=== PATIENT | female | born 1960 | race Caucasian/White ===

== ENCOUNTER 2017-07-25 00:51 | Emergency (ER) | payer BC, OTHER ==
[2017-07-25 01:05] VITALS: BP 207/88; BMI 24.0
--- NOTE | 2017-07-25 01:24 | DR.GENAD ---
HPI - PCP Primary Care Physician: Geo - Complaint/Symptoms Chief Complaint Doctors Comments: I agree with statement. The pain is sharp, not aggravated by motion. Chief Complaint:: "I have been having some back pain in my kidney area since about 1800 tonight that is about a 10 out of 10. I am currently on dialisis because I only have one kidney. So I wanted to get it checked out to make sure everything is okay." Self Treatment fo Chief Complaint: Patient took a Hydrocodone and tylenol. - Source History Provided: Patient - Mode of Arrival Mode of Arrival: Ambulatory - Timing Onset of Chief Complaint: 07/25/17 PMH - PMH Past Medical History: Yes Past Medical History: Diabetes, Hypertension, Renal Disease Past Surgical History: Yes Surgical History: Cholecystectomy, Other Past Surgical History Comment: Liver biopsy, Partial removal of liver, kidney removal (right), blood clot removed from abdomen. - Family History History of Family Medical Conditions: Yes Family Medical History: Cancer, Heart Failure - Social History Does patient currently use any type of tobacco product: No Have you used tobacco products in the last 12 months: No Type of Tobacco Use: None Does any household member use tobacco: No Alcohol Use: None Do you use any recreational Drugs:: No Lives With: Family Lives Where: Home - infectious screening In the last 2 months have you had wt loss of >10#?: NO Have you had fever, night sweats or hemotysis?: No Have you traveled outside the country in the last 6 months?: No Isolation: Standard ROS - Review of Systems Eyes: No Symptoms Reported ENTM: No Symptoms Reported Respiratoy: No Symptoms Reported Cardiovascular: No Symptoms Reported Gastrointestinal/Abdominal: No Symptoms Reported Genitourinary: No Symptoms Reported Neurological: No Symptoms Reported Musculoskeletal: Back Pain (right flank) Integumentary: No Symptoms Reported Hematologic/Lymphatic: No Symptoms Reported Endocrine: No Symptoms Reported Psychiatric: No Symptoms Reported All Other Systems: Reviewed and Negative PE - Vital Signs Vitals: Temperature 97.5 F Pulse Rate 62 Respiratory Rate 18 Blood Pressure [Right Arm] 179/91 Blood Pressure [Left Arm] 153/84 Blood Pressure 207/88 O2 Sat by Pulse Oximetry 99 - General Limitations: No Limitations General Appearance: Alert, In No Apparent Distress - Head Head Exam: Normal Inspection, Atraumatic - Eyes Eye exam: Normal Appearance, PERRL, EOMI - ENT ENT Exam: Normal Exam External Ear Exam: Normal External Inspection TM/Canal Exam: Bilateral Normal Nose Exam: Normal Nose Exam, Sinus Tenderness Mouth Exam: Normal Inspection Throat Exam: Normal Inspection - Neck Neck Exam: Normal Inspection, Full ROM - Chest Chest Inspection: Normal Inspection - Respiratory Respiratory Exam: Normal Lung Sounds Bilat Respiratory Exam: Bilateral Clear to Auscultation - Cardiovascular Cardiovascular Exam: Regular Rate, Normal Rhythm - Abdominal Exam Abdominal Exam: Normal Inspection, Normal Bowel Sounds Abdominal Tenderness: negative: RUQ, RLQ, LUQ, LLQ, Epigastrium, Suprapubic, Diffuse, Mild, Moderate, Severe, Other - Extremities Extremities Exam: Normal Inspection - Back Back Exam: Normal Inspection, (L) CVA Tenderness - Neurologic Neurological Exam: Alert, Oriented X3, CN II-XII Intact - Psychiatric Psychiatric Exam: Normal Affect - Skin Skin Exam: Warm, Dry, Intact Course - Reevaluation 1st: Unchanged ROR - Labs Reviewed Result Diagrams: 07/25/17 01:35 07/25/17 01:35 Laboratory: WBC 6.7 X10^3/uL (3.6-10.0) 07/25/17 01:35 RBC 3.91 X10^6/uL (3.5-5.4) 07/25/17 01:35 Hgb 14.0 g/dL (12.0-16.0) 07/25/17 01:35 Hct 40.1 % (36.0-47.0) 07/25/17 01:35 MCV 102.5 fL (80.0-100.0) H 07/25/17 01:35 MCH 35.7 pg (27.0-34.0) H 07/25/17 01:35 MCHC 34.8 g/dL (33.0-35.0) 07/25/17 01:35 RDW 14.1 % (11.6-16.5) 07/25/17 01:35 Plt Count 191 X10^3/uL (150.0-450.0) 07/25/17 01:35 MPV 7.1 fL (7.4-11.0) L 07/25/17 01:35 Neut % 58.0 % (42.0-75.0) 07/25/17 01:35 Lymph % 28.5 % (21.0-51.0) 07/25/17 01:35 [place] % 11.5 % (0.0-13.0) 07/25/17 01:35 Eos % 1.2 % (0.9-2.9) 07/25/17 01:35 Baso % 0.8 % (0.2-1.0) 07/25/17 01:35 Neut # 3.9 x10^3/uL (2.2-4.8) 07/25/17 01:35 Lymph # 1.9 X10^3/uL (1.3-2.9) 07/25/17 01:35 [place] # 0.8 x10^3/uL (0.3-0.8) 07/25/17 01:35 Eos # 0.1 x10^3/uL (0.0-0.2) 07/25/17 01:35 Baso # 0.1 X10^3/uL (0.0-0.1) 07/25/17 01:35 Absolute Nucleated RBC 0.0 /100WBC 07/25/17 01:35 Sodium 137 mmol/L (136-145) 07/25/17 01:35 Corrected Sodium 138 mmol/L (136-145) 07/25/17 01:35 Potassium 4.1 mmol/L (3.5-5.1) 07/25/17 01:35 Chloride 99 mmol/L (98-107) 07/25/17 01:35 Carbon Dioxide 32.9 mmol/L (21-32) H 07/25/17 01:35 BUN 28 mg/dL (7-18) H 07/25/17 01:35 Creatinine 4.96 mg/dL (0.55-1.02) H 07/25/17 01:35 Est GFR (MDRD) Af Amer 12 (>60) L 07/25/17 01:35 Est GFR (MDRD) Non-Af 10 (>60) L 07/25/17 01:35 Glucose 128 mg/dL (65-99) H 07/25/17 01:35 Calcium 9.7 mg/dL (8.5-10.1) 07/25/17 01:35 Corrected Calcium 10.3 mg/dL (8.5-10.1) H 07/25/17 01:35 Total Bilirubin 0.50 mg/dL (0.2-1.0) 07/25/17 01:35 AST 23 Units/L (15-37) 07/25/17 01:35 ALT 16 Units/L (12-78) 07/25/17 01:35 Alkaline Phosphatase 147 Units/L (46-116) H 07/25/17 01:35 Total Protein 9.4 g/dL (6.4-8.2) H 07/25/17 01:35 Albumin 3.2 g/dL (3.4-5.0) L 07/25/17 01:35 Globulin 6.2 g/dL (2.5-4.5) H 07/25/17 01:35 Albumin/Globulin Ratio 0.5 Ratio (1.1-2.1) L 07/25/17 01:35 Specimen Type Clean catch urine 07/25/17 01:30 Urine Color Yellow (YELLOW) 07/25/17 01:30 Urine Appearance Slightly hazy (CLEAR) 07/25/17 01:30 Urine pH 8.0 (5.0 - 8.0) 07/25/17 01:30 Ur Specific [place] 1.010 (1.000-1.030) 07/25/17 01:30 Urine Protein 4+ (NEGATIVE) 07/25/17 01:30 Urine Glucose (UA) 1+ (NEGATIVE) 07/25/17 01:30 Urine Ketones Negative (NEGATIVE) 07/25/17 01:30 Urine Occult Blood 5+ (NEGATIVE) 07/25/17 01:30 Urine Nitrite Negative (NEGATIVE) 07/25/17 01:30 Urine Bilirubin Negative (NEGATIVE) 07/25/17 01:30 Urine Urobilinogen Normal (NORMAL) 07/25/17 01:30 Ur Leukocyte Esterase 1+ (NEGATIVE) 07/25/17 01:30 Urinalysis Comment QNS 07/25/17 01:30 - XRAY XRAY Interpreted by: Radiologist (CT Abd/Pel: The 13.6cm long lentiform shaped complex fluid collectin in the anterior abdominal wall is consistent with an abdominal wall hematoma. 2. In the anterior aspect of the left polycystic kidney there is a 7.4cm hyperdense cyst likely representing hemorrhagic cyst. The right kidney has been removed. Any abdomen on the right, below the liver there is a 6.3cm cystic fluid collection. There is mild abdominal and pelvic ascites.) - Diagnosis Discharge Problem: left polycystic kidney hemorrhage cyst, abdominal and pelvic wall ascities Hematoma of abdominal wall Qualifiers: Encounter type: initial encounter Qualified Code(s): S30.1XXA - Contusion of abdominal wall, initial encounter - Discharge Plan Condition: Stable - Follow ups/Referrals Follow ups/Referrals: Demetrius Guardado [Primary Care Provider] - 3 days - Instructions
[2017-07-25] MEDS ORDERED: MORPHINE SULFATE INJ 4 MG IVP ONE (01:25)
[2017-07-25] MEDS ORDERED: MORPHINE SULFATE INJ 4 MG ONE (01:26)
[2017-07-25 01:42] LABS: BASOPHILS # (AUTO) 0.1 X10^3/uL (0.0-0.1); EOSINOPHILS # (AUTO) 0.1 x10^3/uL (0.0-0.2); MEAN CORPUSCULAR HEMOGLOBIN 35.7 pg (27.0-34.0); MEAN CORPUSCULAR HGB CONC 34.8 g/dL (33.0-35.0)
[2017-07-25 01:44] LABS: BILIRUBIN,URINE NEGATIVE (NEGATIVE); BLOOD/HEMOGLOBIN,URINE 5+ (NEGATIVE); GLUCOSE, URINE 1+ (NEGATIVE); KETONES,URINE NEGATIVE (NEGATIVE); LEUKOCYTE ESTERASE ,URINE 1+ (NEGATIVE); NITRITES,URINE NEGATIVE (NEGATIVE); PROTEIN,URINE 4+ (NEGATIVE); UROBILINOGEN,URINE NORMAL (NORMAL)
[2017-07-25 01:51] LABS: COLOR,URINE YELLOW (YELLOW)
[2017-07-25 01:52] LABS: APPEARANCE,URINE SLIGHTLY HAZY (CLEAR)
[2017-07-25 01:53] LABS: BASOPHILS % (AUTO) 0.8 % (0.2-1.0); EOSINOPHILS % (AUTO) 1.2 % (0.9-2.9); HEMATOCRIT 40.1 % (36.0-47.0); LYMPHOCYTES # (AUTO) 1.9 X10^3/uL (1.3-2.9); LYMPHOCYTES % (AUTO) 28.5 % (21.0-51.0); MEAN CORPUSCULAR VOLUME 102.5 fL (80.0-100.0); MEAN PLATELET VOLUME 7.1 fL (7.4-11.0); MONOCYTES # (AUTO) 0.8 x10^3/uL (0.3-0.8); MONOCYTES % (AUTO) 11.5 % (0.0-13.0); NEUTROPHILS # (AUTO) 3.9 x10^3/uL (2.2-4.8); PLATELET COUNT 191 X10^3/uL (150.0-450.0); RED BLOOD COUNT 3.91 X10^6/uL (3.5-5.4); RED CELL DISTRIBUTION WIDTH 14.1 % (11.6-16.5); WHITE BLOOD COUNT 6.7 X10^3/uL (3.6-10.0)
[2017-07-25 01:58] LABS: ALBUMIN 3.2 g/dL (3.4-5.0); CALCIUM 9.7 mg/dL (8.5-10.1); CARBON DIOXIDE 32.9 mmol/L (21-32); COR CA(FOR HYPOALB) 10.3 mg/dL (8.5-10.1); CREATININE 4.96 mg/dL (0.55-1.02); TOTAL PROTEIN 9.4 g/dL (6.4-8.2)
--- NOTE | 2017-07-25 03:30 | CT ---
EXAM: CT ABDOMEN AND PELVIS WITHOUT CONTRAST INDICATION: Left flank pain COMPARISION: No priors available for comparison TECHNIQUE: Axial CT examination of the abdomen and pelvis was performed without intravenous contrast. Coronal an d sagittal reconstructions were created using the axial data. FINDINGS: Chronic changes noted in the lung bases. There is scarring in the lateral base of the left lung. The numerous large cysts are seen in the left kidney consistent with on was on dominant polycystic kidney disease. Anteriorly in the left kidney is a 7.4 cm cyst which is increased in density, likely repres enting a hemorrhagic cyst. The gallbladder has been removed. The liver, spleen, and adrenal glands ap pear unremarkable. The pancreas appears unremarkable. There is a lentiform shaped complex fluid collection in the anterior abdominal wall measuring 13.6 cm transverse by 2.4 cm in thickness. There is mild abdominal ascites. In the right abdomen there is a 6.3 of 4.8 cm cystic fluid collection. Free fluid noted in the pelvis. The urinary bladder is decompr essed and poorly visualized. IMPRESSION: 1: The 13.6 cm long lentiform shaped complex fluid collection in the anterior abdominal wall is consi stent with an abdominal wall hematoma. 2: In the anterior aspect of the left polycystic kidney there is a 7.4 cm hyperdense cyst likely repr esenting hemorrhagic cyst. The right kidney has been removed. 3: Any abdomen on the right, below the liver there is a 6.3 cm cystic fluid collection. There is mild abdominal and pelvic ascites. Reported By:
== END 2017-07-25 03:55 | disposition home or self-care (01) ==
LOC: ER 00:51
DX: Q61.3 Polycystic kidney, unspecified (principal); S30.1XXA Contusion of abdominal wall, initial encounter; R18.8 Other ascites
CPT/HCPCS: 36415; 74176; 80053; 81003; 85025; 96365; 96374; 99283; A4222; J2270

== ENCOUNTER 2017-10-07 14:13 | Emergency (ER) | payer BC, OTHER ==
--- NOTE | 2017-10-07 14:27 | ED.ABDFE ---
HPI - Time seen Time seen: 14:30 - HPI Comment HPI Comment: EPIGASTRIC, LOWER SUBSTERNAL CHEST PAIN AND HICCOUGH. STARTED 4 DAYS AGO. WORSE TODAY. RECENT ILLNESS WITH RESIDUAL ABDOMINAL PAIN. PATIENT ON DIALYSIS DUE TO RECENT KIDNEY FAILURE. SHE WAS DIALIZE TODAY. - Complaint Chief Complaint Doctors Comments: EPIGASTRIC PAIN TIMES 4 DAYS. HICCOUGH - Nurses notes reviewed Nurses Notes Review: Yes - Source History Provided: Patient - Mode of arrival Mode of Arrival: Ambulatory - Timing Came on: Suddenly - Duration Duration: Constant Duration: Days - Location Location: Epigastric - Severity Severity: Moderate - Context Onset: Gradually, On Exertion History of: Similar pain (dx) - Modifying Worsening Factors: Nothing Improving Factors: Nothing - Associated signs and symptoms Associated Signs and Symptoms: Nausea PMH - PMH Past Medical History: Diabetes, Hypertension, Renal Disease Past Surgical History: Yes Surgical History: Cholecystectomy, Other - Family History Family Medical History: Cancer, Heart Failure - Social History Do you use any recreational Drugs:: No ROS - Review of Systems Constitutional: Weakness, Fatigue. negative: Chills, Fever Eyes: negative: Eye Pain, Discharge ENTM: negative: Ear Pain, Nose Discharge, Nose Congestion, Throat Pain Respiratoy: Non-Productive Cough, Short of Breath (ON EXERTION), Wheezing. negative: Productive Cough, Hemoptysis Cardiovascular: Chest Pain (LOWER SUBSTERNAL CHEST PAIN) Gastrointestinal/Abdominal: Abdominal Pain (EPIGASTRIC PAIN), Nausea Genitourinary: No Symptoms Reported, Other (DIALYSIS PATIENT WITH DECREASE URINATION) Neurological: Headache, Weakness, Dizziness Musculoskeletal: Back Pain, Muscle Pain Integumentary: Change in Color Hematologic/Lymphatic: Anemia Endocrine: No Symptoms Reported All Other Systems: Reviewed and Negative PE - Vital Signs Vitals: Temperature 97.6 F Pulse Rate 53 Respiratory Rate 17 Blood Pressure [Right Arm] 148/67 Blood Pressure [Left Arm] 153/84 Blood Pressure 178/77 O2 Sat by Pulse Oximetry 98 - General Limitations: No Limitations General Appearance: Alert - Head Head Exam: Normal Inspection - Eyes Eye exam: Normal Appearance - ENT ENT Exam: Normal External Ear Exam - Neck Neck Exam: Normal Inspection - Chest Chest Inspection: Symmetric Chest Wall Rise - Respiratory Respiratory Exam: Normal Lung Sounds Bilat Respiratory Exam: Bilateral Clear to Auscultation - Cardiovascular Cardiovascular Exam: Regular Rate, Normal Rhythm, Normal Heart Sounds - Abdominal Exam Abdominal Exam: Normal Bowel Sounds, Soft, Tenderness Abdominal Tenderness: Epigastrium, Moderate - Rectal Rectal Exam: Deferred - Back Back Exam: Paraspinal Tenderness - Extremeties Extremities Exam: negative: Edema - External Exam: Female: Deferred : Speculum Exam (Female): Deferred : Bimanual Exam (female): Deferred - Neurologic Neurological Exam: Alert, Oriented X3 - Psychiatric Psychiatric Exam: Normal Affect, Normal Mood - Skin Skin Exam: Normal Color MDM - Differential Diagnosis Differential Diagnosis- Considerations may include:: Diverticular disease, Esophagitis, Gastritus/PUD, Gastroenteritis, Pancreatitis, Urinary tract infection, Urolithiasis Course - Treatment Treatment: SEE ORDERS. IM TORAZINE IN ED. ALBA IMPROVED. - Reevaluation 1st: Improved - Education/Counseling Education/Counseling: Patient, Education Educated On: Treatment, Diagnosis, Needs for Follow Up ROR - Labs Reviewed Laboratory Results Reviewed?: Yes Result Diagrams: 10/07/17 14:47 10/07/17 14:47 Laboratory: WBC 5.7 X10^3/uL (3.6-10.0) 10/07/17 14:47 RBC 2.66 X10^6/uL (3.5-5.4) L 10/07/17 14:47 Hgb 9.9 g/dL (12.0-16.0) L 10/07/17 14:47 Hct 28.0 % (36.0-47.0) L 10/07/17 14:47 MCV 105.2 fL (80.0-100.0) H 10/07/17 14:47 MCH 37.3 pg (27.0-34.0) H 10/07/17 14:47 MCHC 35.4 g/dL (33.0-35.0) H 10/07/17 14:47 RDW 14.2 % (11.6-16.5) 10/07/17 14:47 Plt Count 195 X10^3/uL (150.0-450.0) 10/07/17 14:47 Plt Count Comment Adequate (ADEQUATE) 10/07/17 14:47 MPV 6.8 fL (7.4-11.0) L 10/07/17 14:47 Neut % 53.8 % (42.0-75.0) 10/07/17 14:47 Lymph % 32.1 % (21.0-51.0) 10/07/17 14:47 [place] % 11.0 % (0.0-13.0) 10/07/17 14:47 Eos % 2.2 % (0.9-2.9) 10/07/17 14:47 Baso % 0.9 % (0.2-1.0) 10/07/17 14:47 Neut # 3.1 x10^3/uL (2.2-4.8) 10/07/17 14:47 Lymph # 1.8 X10^3/uL (1.3-2.9) 10/07/17 14:47 [place] # 0.6 x10^3/uL (0.3-0.8) 10/07/17 14:47 Eos # 0.1 x10^3/uL (0.0-0.2) 10/07/17 14:47 Baso # 0.1 X10^3/uL (0.0-0.1) 10/07/17 14:47 Absolute Nucleated RBC 0.0 /100WBC 10/07/17 14:47 Plt Morphology Comment Normal (NORMAL) 10/07/17 14:47 RBC Morphology Abnormal (NORMAL) A 10/07/17 14:47 Hypochromasia Slight A 10/07/17 14:47 Sodium 138 mmol/L (136-145) 10/07/17 14:47 Corrected Sodium TNP 10/07/17 14:47 Potassium 4.7 mmol/L (3.5-5.1) 10/07/17 14:47 Chloride 97 mmol/L (98-107) L 10/07/17 14:47 Carbon Dioxide 28.1 mmol/L (21-32) 10/07/17 14:47 BUN 60 mg/dL (7-18) H 10/07/17 14:47 Creatinine 7.61 mg/dL (0.55-1.02) H 10/07/17 14:47 Est GFR (MDRD) Af Amer 7 (>60) L 10/07/17 14:47 Est GFR (MDRD) Non-Af 6 (>60) L 10/07/17 14:47 Glucose 104 mg/dL (65-99) H 10/07/17 14:47 Calcium 9.0 mg/dL (8.5-10.1) 10/07/17 14:47 Corrected Calcium TNP 10/07/17 14:47 Total Bilirubin 0.40 mg/dL (0.2-1.0) 10/07/17 14:47 AST 18 Units/L (15-37) 10/07/17 14:47 ALT 17 Units/L (12-78) 10/07/17 14:47 Alkaline Phosphatase 112 Units/L (46-116) 10/07/17 14:47 Creatine Kinase 96 Units/L (26-192) 10/07/17 14:47 CK-MB (CK-2) 4.8 ng/mL (0-4.0) H* 10/07/17 14:47 CK/CKMB % Calc 5.0 % (<4) 10/07/17 14:47 Troponin I < 0.02 ng/mL (0-1.5) 10/07/17 14:47 Total Protein 8.6 g/dL (6.4-8.2) H 10/07/17 14:47 Albumin 3.4 g/dL (3.4-5.0) 10/07/17 14:47 Globulin 5.2 g/dL (2.5-4.5) H 10/07/17 14:47 Albumin/Globulin Ratio 0.7 Ratio (1.1-2.1) L 10/07/17 14:47 Amylase 93 Units/L (25-115) 10/07/17 14:47 Lipase 218 Units/L (73-393) 10/07/17 14:47 Specimen Type Clean catch urine 10/07/17 16:10 Urine Color Yellow (YELLOW) 10/07/17 16:10 Urine Appearance Clear (CLEAR) 10/07/17 16:10 Urine pH 8.0 (5.0 - 8.0) 10/07/17 16:10 Ur Specific [place] 1.015 (1.000-1.030) 10/07/17 16:10 Urine Protein 4+ (NEGATIVE) 10/07/17 16:10 Urine Glucose (UA) Negative (NEGATIVE) 10/07/17 16:10 Urine Ketones Negative (NEGATIVE) 10/07/17 16:10 Urine Occult Blood 5+ (NEGATIVE) 10/07/17 16:10 Urine Nitrite Negative (NEGATIVE) 10/07/17 16:10 Urine Bilirubin Negative (NEGATIVE) 10/07/17 16:10 Urine Urobilinogen Normal (NORMAL) 10/07/17 16:10 Ur Leukocyte Esterase 1+ (NEGATIVE) 10/07/17 16:10 Urine RBC 1 - 3 /HPF (NEGATIVE) 10/07/17 16:10 Urine WBC Rare /HPF (NEGATIVE) 10/07/17 16:10 Ur Squamous Epith Cells Few /HPF (NEGATIVE) 10/07/17 16:10 Urine Bacteria Negative /HPF (NEGATIVE) 10/07/17 16:10 Ur Culture Indicated? No/not indicated 10/07/17 16:10 - XRAY XRAY Interpreted by: Radiologist XRAY Findings: REPORT DISCUSS WITH PATIENT. - Diagnosis Discharge Problem: Abdominal pain, Hiccough - Discharge Plan Disposition: 01 HOME, SELF-CARE Condition: Stable - Follow ups/Referrals Follow ups/Referrals: Demetrius Guardado [Primary Care Provider] - 10/08/17 - Instructions Instructions: Abdominal Pain, Adult, [id number] Additional Instructions: RETURN TO ED IF WORSE. YOU ALSO HAVE HICCOUGH.
[2017-10-07] MEDS ORDERED: LEVSIN/MAALOX/LIDOC VISC PO ONE (14:29)
[2017-10-07] MEDS ORDERED: PEPCID 20 MG IV PREMIX* 20 MG/50 ML BAG IV ONE ×2 (14:29→15:01)
[2017-10-07 14:53] VITALS: BMI 24.2
[2017-10-07] MEDS ORDERED: ZOFRAN INJ 4 MG VIAL IVP ONE (14:56)
[2017-10-07 15:01] LABS: BASOPHILS # (AUTO) 0.1 X10^3/uL (0.0-0.1); BASOPHILS % (AUTO) 0.9 % (0.2-1.0); EOSINOPHILS # (AUTO) 0.1 x10^3/uL (0.0-0.2); EOSINOPHILS % (AUTO) 2.2 % (0.9-2.9); HEMOGLOBIN 9.9 g/dL (12.0-16.0); LYMPHOCYTES # (AUTO) 1.8 X10^3/uL (1.3-2.9); LYMPHOCYTES % (AUTO) 32.1 % (21.0-51.0); MEAN CORPUSCULAR HEMOGLOBIN 37.3 pg (27.0-34.0); MEAN CORPUSCULAR HGB CONC 35.4 g/dL (33.0-35.0); MEAN CORPUSCULAR VOLUME 105.2 fL (80.0-100.0); MEAN PLATELET VOLUME 6.8 fL (7.4-11.0); MONOCYTES # (AUTO) 0.6 x10^3/uL (0.3-0.8); NEUTROPHILS # (AUTO) 3.1 x10^3/uL (2.2-4.8); NEUTROPHILS % (AUTO) 53.8 % (42.0-75.0); PLATELET COUNT 195 X10^3/uL (150.0-450.0); RED BLOOD COUNT 2.66 X10^6/uL (3.5-5.4); RED CELL DISTRIBUTION WIDTH 14.2 % (11.6-16.5); WHITE BLOOD COUNT 5.7 X10^3/uL (3.6-10.0)
[2017-10-07] MEDS ORDERED: ZOFRAN INJ 4 MG VIAL ONE (15:02)
[2017-10-07] MEDS ORDERED: LEVSIN/MAALOX/LIDOC VISC ONE (15:02)
[2017-10-07 15:15] LABS: BLOOD UREA NITROGEN 60 mg/dL (7-18); CARBON DIOXIDE 28.1 mmol/L (21-32); CHLORIDE 97 mmol/L (98-107); CREATININE 7.61 mg/dL (0.55-1.02); SODIUM 138 mmol/L (136-145); TROPONIN I < 0.02 ng/mL (0-1.5); eGFR BLACK RACES 7 (>60); eGFR NON BLACK RACES 6 (>60)
[2017-10-07 15:27] LABS: PLATELET MORPHOLOGY COMMENT NORMAL (NORMAL)
[2017-10-07 15:28] LABS: HYPOCHROMASIA SLIGHT
--- NOTE | 2017-10-07 15:31 | CT ---
HISTORY: Abdominal pain, nausea, vomiting and diarrhea Study: CT abdomen and pelvis without contrast Comparison: 07/25/2017 Technique: Multiple axial images of the abdomen and pelvis were obtained without IV contrast. Dose reduction t echniques including Automated Exposure Control (AEC) and adjustment of mA and kV were utilized. Findings: Please note evaluation is limited without use of IV contrast. Cardiomegaly is noted. There is a trace right pleural effusion and bibasilar atelectasis. The right kidney is removed. Fibrocystic changes of the left kidney again noted with an indeterminate intermedi ate density lesion measuring 8.2 cm that could represent a complex cyst but solid mass is not exclude d. Gallbladder is removed. There is ascites around the liver. The spleen and pancreas are grossly unr emarkable. No free intraperitoneal air. There is scattered ascites in the abdomen and pelvis. There is a cystic fluid collection again seen in the right lower quadrant measuring up to 5.5 cm. There is also a ventr al abdominal wall fluid collection that appears to be smaller on today's study that may represent res olving seroma or hematoma. There are surgical changes in the ventral abdomen. The soft tissues and osseous structures are unremarkable. The vascular structures are unremarkable. N o pathologically enlarged lymph nodes are identified. The urinary bladder is unremarkable. IMPRESSION: 1. Small amount of ascites scattered throughout the abdomen and pelvis and small right pleural effusi on. 2. Stable cystic fluid collection in the right lower quadrant measuring up to 5.5 cm. 3. Resolving ventral hematoma or seroma. 4. Polycystic left kidney with indeterminate lesion that may represent a complex cyst versus mass. No nemergent MRI with contrast or ultrasound may provide further evaluation. Reported By:
[2017-10-07 15:37] LABS: ALANINE AMINOTRANSFERASE 17 Units/L (12-78); ALBUMIN 3.4 g/dL (3.4-5.0); ALKALINE PHOSPHATASE 112 Units/L (46-116); AMYLASE 93 Units/L (25-115); ASPARTATE AMINO TRANSFERASE 18 Units/L (15-37); CREATINE KINASE 96 Units/L (26-192); LIPASE 218 Units/L (73-393); TOTAL PROTEIN 8.6 g/dL (6.4-8.2)
[2017-10-07 15:58] LABS: CREATINE KINASE MB 4.8 ng/mL (0-4.0)
[2017-10-07] MEDS ORDERED: MORPHINE SULFATE INJ 4 MG IVP ONE (16:05)
[2017-10-07] MEDS ORDERED: THORAZINE INJ 25 MG AMP IM ONE (16:07)
[2017-10-07] MEDS ORDERED: THORAZINE INJ 25 MG AMP ONE (16:10)
[2017-10-07] MEDS ORDERED: MORPHINE SULFATE INJ 4 MG ONE (16:10)
[2017-10-07 16:22] LABS: BILIRUBIN,URINE NEGATIVE (NEGATIVE); BLOOD/HEMOGLOBIN,URINE 5+ (NEGATIVE); GLUCOSE, URINE NEGATIVE (NEGATIVE); KETONES,URINE NEGATIVE (NEGATIVE); LEUKOCYTE ESTERASE ,URINE 1+ (NEGATIVE); NITRITES,URINE NEGATIVE (NEGATIVE); PROTEIN,URINE 4+ (NEGATIVE); UROBILINOGEN,URINE NORMAL (NORMAL)
[2017-10-07 16:30] LABS: APPEARANCE,URINE CLEAR (CLEAR); COLOR,URINE YELLOW (YELLOW)
[2017-10-07 16:31] LABS: BACTERIA,URINE NEGATIVE /HPF (NEGATIVE); SQUAMOUS EPITHELIAL CELL,UR FEW /HPF (NEGATIVE)
[2017-10-07 17:18] VITALS: BP 148/67
== END 2017-10-07 17:14 | disposition home or self-care (01) ==
LOC: ER 14:13
DX: R10.13 Epigastric pain (principal); R06.6 Hiccough; Q61.3 Polycystic kidney, unspecified
CPT/HCPCS: 36415; 74176; 80053; 81001; 82150; 82550; 82553; 83690; 84484; 85025; 93005; 93010; 96365; 96372; 96374; 96375; 99283; 99284; A4222; S0028; J2270; J2405; J3230

== ENCOUNTER 2017-10-13 14:55 | Emergency (ER) | payer BC, OTHER ==
[2017-10-13 15:10] VITALS: BMI 24.0
--- NOTE | 2017-10-13 16:08 | DR.GENAD ---
HPI - PCP Primary Care Physician: dayami - HPI Comment HPI Comment: SEEN IN ED FOR THESE SYMTOMS ON 10/07/2017. NOT IMPROVING. PATIENT IS WEAK AND GET TIRED EASY. SHE IS DUE HEMODIALYSIS IN AM. NO FEVER.HEART RATE IS ALSO SLOW TODAY. ON METOPROLOLBUT DID NOT TAKE DOSE FOR TODAY - Complaint/Symptoms Chief Complaint Doctors Comments: N/V/D AND EPIGATRIC PAIN THAT IS GETTING WORSE. Chief Complaint:: pt stated she has been vomiting and having diahrrea and having sever abd pain more so in the epi gastric region. patient stated she has been feeling bad for 4 weeks. is being treated for h.ploryi - Nurses notes reviewed Nurses Notes Review: Yes - Source History Provided: Patient, Family Member - Mode of Arrival Mode of Arrival: Ambulatory - Timing Onset of Chief Complaint: 09/22/17 Came on: Suddenly - Duration Duration: Constant Duration: Days - Severity Severity: Moderate PMH - PMH Past Medical History: Yes Past Medical History: Diabetes, Hypertension, Renal Disease Past Surgical History: Yes Surgical History: Cholecystectomy, Other - Family History History of Family Medical Conditions: Yes Family Medical History: Cancer, Heart Failure - Social History Does patient currently use any type of tobacco product: Yes Have you used tobacco products in the last 12 months: Yes Type of Tobacco Use: None Does any household member use tobacco: No Alcohol Use: None Do you use any recreational Drugs:: No Lives With: Alone Lives Where: Home - infectious screening In the last 2 months have you had wt loss of >10#?: YES Have you had fever, night sweats or hemotysis?: Yes Have you traveled outside the country in the last 6 months?: No Isolation: Standard ROS - Review of Systems Constitutional: Weakness, Fatigue, Loss of Appetite. negative: Chills, Fever Eyes: negative: Eye Pain, Discharge ENTM: negative: Ear Pain, Nose Discharge, Nose Congestion, Throat Pain Respiratoy: Short of Breath (ON EXERTION.). negative: Wheezing, Hemoptysis Cardiovascular: Chest Pain, Other (BRADYCARDIA) Gastrointestinal/Abdominal: Abdominal Pain, Diarrhea, Nausea, Vomiting Genitourinary: negative: Dysuria, Frequency, Hematuria Neurological: Weakness, Dizziness Musculoskeletal: Muscle Pain Integumentary: negative: Rash, Bruises Hematologic/Lymphatic: Anemia Endocrine: negative: Flushing, Increased Thirst, Increased Urine All Other Systems: Reviewed and Negative PE - Vital Signs Vitals: Temperature 98.9 F Pulse Rate [Left] 41 Pulse Rate 46 Respiratory Rate 20 Blood Pressure [Right Arm] 147/67 Blood Pressure [Left Arm] 153/84 Blood Pressure 195/81 O2 Sat by Pulse Oximetry 100 - General Limitations: No Limitations General Appearance: Alert - Head Head Exam: Normal Inspection - Eyes Eye exam: Normal Appearance - ENT ENT Exam: Normal External Ear Exam External Ear Exam: Normal External Inspection TM/Canal Exam: Bilateral Normal Nose Exam: Normal Nose Exam Mouth Exam: Normal Inspection Throat Exam: Normal Inspection - Neck Neck Exam: Trachea Midline - Chest Chest Inspection: Symmetric Chest Wall Rise - Respiratory Respiratory Exam: Normal Lung Sounds Bilat Respiratory Exam: Bilateral Rhonchi, Lower Rhonchi - Cardiovascular Cardiovascular Exam: Bradycardia - Abdominal Exam Abdominal Exam: Normal Bowel Sounds, Soft, Tenderness Abdominal Tenderness: Diffuse, Mild - Extremities Extremities Exam: Normal Inspection - Back Back Exam: Normal Inspection - Neurologic Neurological Exam: Alert, Oriented X3 - Psychiatric Psychiatric Exam: Normal Affect, Normal Mood - Skin Skin Exam: Normal Color MDM - Additional Information Additional Information Obtained From: Family - Differential Diagnosis Differential Diagnosis: BRADYCARDIA, DIARRHEA, ABDOMINAL PAIN, NAUSEA/VOMITING Course - Treatment Treatment: SEE ORDERS. IM PAIN MED IN ED. PATIENT GIVEN CALCIUM CHLORIDE, INSULIN AND D50 IV FOR HYPER GLYCEMIA. - Consultation Consultation Comments: PATIENT ACCEPTED FOR TRANSFER TO [facility] BY DR. MORGAN. - Education/Counseling Education/Counseling: Patient, Family, Education Educated On: Treatment, Diagnosis ROR - Labs Reviewed Laboratory Results Reviewed?: Yes Result Diagrams: 10/13/17 16:20 10/13/17 20:50 Laboratory: WBC 7.3 X10^3/uL (3.6-10.0) 10/13/17 16:20 RBC 2.97 X10^6/uL (3.5-5.4) L 10/13/17 16:20 Hgb 11.0 g/dL (12.0-16.0) L 10/13/17 16:20 Hct 31.9 % (36.0-47.0) L 10/13/17 16:20 MCV 107.3 fL (80.0-100.0) H 10/13/17 16:20 MCH 37.2 pg (27.0-34.0) H 10/13/17 16:20 MCHC 34.7 g/dL (33.0-35.0) 10/13/17 16:20 RDW 14.6 % (11.6-16.5) 10/13/17 16:20 Plt Count 172 X10^3/uL (150.0-450.0) 10/13/17 16:20 Plt Count Comment Adequate (ADEQUATE) 10/13/17 16:20 MPV 7.1 fL (7.4-11.0) L 10/13/17 16:20 Neut % 56.6 % (42.0-75.0) 10/13/17 16:20 Lymph % 30.5 % (21.0-51.0) 10/13/17 16:20 [place] % 9.5 % (0.0-13.0) 10/13/17 16:20 Eos % 2.5 % (0.9-2.9) 10/13/17 16:20 Baso % 0.9 % (0.2-1.0) 10/13/17 16:20 Neut # 4.1 x10^3/uL (2.2-4.8) 10/13/17 16:20 Lymph # 2.2 X10^3/uL (1.3-2.9) 10/13/17 16:20 [place] # 0.7 x10^3/uL (0.3-0.8) 10/13/17 16:20 Eos # 0.2 x10^3/uL (0.0-0.2) 10/13/17 16:20 Baso # 0.1 X10^3/uL (0.0-0.1) 10/13/17 16:20 Absolute Nucleated RBC 0.0 /100WBC 10/13/17 16:20 Plt Morphology Comment Normal (NORMAL) 10/13/17 16:20 RBC Morphology Abnormal (NORMAL) A 10/13/17 16:20 Poikilocytosis Slight A 10/13/17 16:20 Macrocytosis 1+ A 10/13/17 16:20 Sodium 138 mmol/L (136-145) 10/13/17 16:20 Corrected Sodium 139 mmol/L (136-145) 10/13/17 16:20 Potassium 5.0 mmol/L (3.5-5.1) 10/13/17 20:50 Chloride 97 mmol/L (98-107) L 10/13/17 16:20 Carbon Dioxide 25.4 mmol/L (21-32) 10/13/17 16:20 BUN 55 mg/dL (7-18) H 10/13/17 16:20 Creatinine 9.63 mg/dL (0.55-1.02) H 10/13/17 16:20 Est GFR (MDRD) Af Amer 5 (>60) L 10/13/17 16:20 Est GFR (MDRD) Non-Af 4 (>60) L 10/13/17 16:20 Glucose 157 mg/dL (65-99) H 10/13/17 16:20 Calcium 9.2 mg/dL (8.5-10.1) 10/13/17 16:20 Corrected Calcium TNP 10/13/17 16:20 Total Bilirubin 0.40 mg/dL (0.2-1.0) 10/13/17 16:20 AST 16 Units/L (15-37) 10/13/17 16:20 ALT 13 Units/L (12-78) 10/13/17 16:20 Alkaline Phosphatase 100 Units/L (46-116) 10/13/17 16:20 Creatine Kinase 68 Units/L (26-192) 10/13/17 16:20 CK-MB (CK-2) 2.9 ng/mL (0-4.0) 10/13/17 16:20 CK/CKMB % Calc 4.3 % (<4) 10/13/17 16:20 Troponin I < 0.02 ng/mL (0-1.5) 10/13/17 16:20 Total Protein 8.2 g/dL (6.4-8.2) 10/13/17 16:20 Albumin 3.4 g/dL (3.4-5.0) 10/13/17 16:20 Globulin 4.8 g/dL (2.5-4.5) H 10/13/17 16:20 Albumin/Globulin Ratio 0.7 Ratio (1.1-2.1) L 10/13/17 16:20 Amylase 54 Units/L (25-115) 10/13/17 16:20 Lipase 138 Units/L (73-393) 10/13/17 16:20 - EKG Rhythm: SB - Diagnosis Discharge Problem: Hyperkalemia, Bradycardia, End stage renal disease Diarrhea Qualifiers: Diarrhea type: unspecified type Qualified Code(s): R19.7 - Diarrhea, unspecified Vomiting Qualifiers: Vomiting type: bilious vomiting Nausea presence: unspecified Qualified Code(s) : R11.14 - Bilious vomiting Abdominal pain Qualifiers: Abdominal location: upper abdomen, unspecified Qualified Code(s): R10.10 - Upper abdominal pain, unspecified - Discharge Plan Disposition: ER [facility] Condition: Stable - Follow ups/Referrals Follow ups/Referrals: Demetrius Guardado [Primary Care Provider] - 3 days - Instructions
[2017-10-13] MEDS ORDERED: ZOFRAN INJ 4 MG VIAL IM ONE (16:09)
[2017-10-13] MEDS ORDERED: MORPHINE SULFATE INJ 4 MG IM ONE (16:09)
[2017-10-13] MEDS ORDERED: ZOFRAN INJ 4 MG VIAL ONE (16:38)
[2017-10-13] MEDS ORDERED: MORPHINE SULFATE INJ 4 MG ONE (16:38)
[2017-10-13 16:40] LABS: BASOPHILS # (AUTO) 0.1 X10^3/uL (0.0-0.1); BASOPHILS % (AUTO) 0.9 % (0.2-1.0); EOSINOPHILS # (AUTO) 0.2 x10^3/uL (0.0-0.2); EOSINOPHILS % (AUTO) 2.5 % (0.9-2.9); HEMATOCRIT 31.9 % (36.0-47.0); LYMPHOCYTES # (AUTO) 2.2 X10^3/uL (1.3-2.9); LYMPHOCYTES % (AUTO) 30.5 % (21.0-51.0); MEAN CORPUSCULAR HEMOGLOBIN 37.2 pg (27.0-34.0); MEAN CORPUSCULAR HGB CONC 34.7 g/dL (33.0-35.0); MEAN CORPUSCULAR VOLUME 107.3 fL (80.0-100.0); MEAN PLATELET VOLUME 7.1 fL (7.4-11.0); MONOCYTES # (AUTO) 0.7 x10^3/uL (0.3-0.8); MONOCYTES % (AUTO) 9.5 % (0.0-13.0); NEUTROPHILS # (AUTO) 4.1 x10^3/uL (2.2-4.8); NEUTROPHILS % (AUTO) 56.6 % (42.0-75.0); PLATELET COUNT 172 X10^3/uL (150.0-450.0); RED BLOOD COUNT 2.97 X10^6/uL (3.5-5.4); RED CELL DISTRIBUTION WIDTH 14.6 % (11.6-16.5); WHITE BLOOD COUNT 7.3 X10^3/uL (3.6-10.0)
[2017-10-13 16:44] LABS: CALCIUM 9.2 mg/dL (8.5-10.1)
[2017-10-13 16:52] LABS: PLATELET MORPHOLOGY COMMENT NORMAL (NORMAL)
[2017-10-13 16:53] LABS: POIKILOCYTOSIS SLIGHT
[2017-10-13 17:02] LABS: BLOOD UREA NITROGEN 55 mg/dL (7-18); CARBON DIOXIDE 25.4 mmol/L (21-32); CHLORIDE 97 mmol/L (98-107); COR NA(FOR HYPERGLY) 139 mmol/L (136-145); CREATININE 9.63 mg/dL (0.55-1.02); SODIUM 138 mmol/L (136-145); TROPONIN I < 0.02 ng/mL (0-1.5); eGFR BLACK RACES 5 (>60); eGFR NON BLACK RACES 4 (>60)
[2017-10-13 17:08] LABS: ALANINE AMINOTRANSFERASE 13 Units/L (12-78); ALBUMIN 3.4 g/dL (3.4-5.0); ALKALINE PHOSPHATASE 100 Units/L (46-116); ASPARTATE AMINO TRANSFERASE 16 Units/L (15-37); CKMB % 4.3 % (<4); CREATINE KINASE 68 Units/L (26-192); CREATINE KINASE MB 2.9 ng/mL (0-4.0); TOTAL PROTEIN 8.2 g/dL (6.4-8.2)
[2017-10-13 17:18] LABS: AMYLASE 54 Units/L (25-115); LIPASE 138 Units/L (73-393)
[2017-10-13] MEDS ORDERED: HumuLIN R IV ONE (19:41)
[2017-10-13] MEDS ORDERED: CALCIUM GLUCONATE 10% IV ONE ×2 (19:44→19:46)
[2017-10-13] MEDS ORDERED: D50W ABBOJECT SYR IV ONE (19:44)
[2017-10-13] MEDS ORDERED: D50W ABBOJECT SYR ONE (19:47)
[2017-10-13] MEDS ORDERED: HumuLIN R ONE (19:47)
[2017-10-13] MEDS ORDERED: SNACK - Diabetic Appropriate PO SCH (20:00)
[2017-10-13] MEDS ORDERED: NIFEDIPINE CAP 10 MG PO ONE (21:08)
[2017-10-13] MEDS ORDERED: NIFEDIPINE CAP 10 MG ONE (21:09)
[2017-10-13 23:23] VITALS: BP 147/67
== END 2017-10-13 23:45 | disposition short-term general hospital (02) ==
LOC: ER 15:16
DX: E87.5 Hyperkalemia (principal); R00.1 Bradycardia, unspecified; N18.6 End stage renal disease; R19.7 Diarrhea, unspecified; R11.14 Bilious vomiting; R10.84 Generalized abdominal pain
CPT/HCPCS: 36415; 80053; 82150; 82550; 82553; 83690; 84132; 84484; 85025; 93005; 96365; 96372; 96374; 96375; 99283; 99285; J0610; J1815; J2270; J2405; J3490

== ENCOUNTER → 2018-01-09 | Outpatient (CLI) | payer BC, OTHER ==
[2018-01-09 10:02] LABS: BASOPHILS # (AUTO) 0.1 X10^3/uL (0.0-0.1); BASOPHILS % (AUTO) 0.9 % (0.2-1.0); EOSINOPHILS # (AUTO) 0.3 x10^3/uL (0.0-0.2); EOSINOPHILS % (AUTO) 4.4 % (0.9-2.9); HEMATOCRIT 28.7 % (36.0-47.0); HEMOGLOBIN 9.8 g/dL (12.0-16.0); LYMPHOCYTES # (AUTO) 2.4 X10^3/uL (1.3-2.9); LYMPHOCYTES % (AUTO) 38.7 % (21.0-51.0); MEAN CORPUSCULAR HEMOGLOBIN 36.6 pg (27.0-34.0); MEAN CORPUSCULAR HGB CONC 34.3 g/dL (33.0-35.0); MEAN CORPUSCULAR VOLUME 106.6 fL (80.0-100.0); MEAN PLATELET VOLUME 6.9 fL (7.4-11.0); MONOCYTES # (AUTO) 0.4 x10^3/uL (0.3-0.8); MONOCYTES % (AUTO) 6.1 % (0.0-13.0); NEUTROPHILS % (AUTO) 49.9 % (42.0-75.0); PLATELET COUNT 198 X10^3/uL (150.0-450.0); RED BLOOD COUNT 2.69 X10^6/uL (3.5-5.4); RED CELL DISTRIBUTION WIDTH 15.7 % (11.6-16.5); WHITE BLOOD COUNT 6.1 X10^3/uL (3.6-10.0)
[2018-01-09 10:17] LABS: BILIRUBIN,DIRECT 0.08 mg/dL (0-0.2); CARBON DIOXIDE 32.7 mmol/L (21-32); CREATININE 5.73 mg/dL (0.55-1.02); TOTAL PROTEIN 7.8 g/dL (6.4-8.2)
[2018-01-09 10:35] LABS: PLATELET MORPHOLOGY COMMENT NORMAL (NORMAL)
== END ==
LOC: LAB 09:31
PROVIDERS: ATTEND Physician Assistant
DX: I38 Endocarditis, valve unspecified (principal)
CPT/HCPCS: 36415; 80048; 80061; 80076; 85025

== ENCOUNTER 2018-02-21 07:28 | Emergency (ER) | payer OTHER, BC ==
[2018-02-21 07:36] VITALS: BMI 24.3
[2018-02-21] MEDS ORDERED: DILAUDID INJ ONE ×2 (08:16→08:34)
--- NOTE | 2018-02-21 08:34 | DR.GENAD ---
HPI - PCP Primary Care Physician: dayami - Complaint/Symptoms Chief Complaint Doctors Comments: Patient has a history of polycystic kidney disease, scheduled to CT kidney on the in [place] concerning her cystic disease. The back pain is a new problem. The pain is 10/10, sharp, movement makes it worse onset 4 days ago. Chief Complaint:: "hurting in lower back since saturday, with N/V" - Source History Provided: Patient - Mode of Arrival Mode of Arrival: Ambulatory - Timing Onset of Chief Complaint: 02/18/18 PMH - PMH Past Medical History: Yes Past Medical History: Diabetes, Hypertension, Renal Disease Past Surgical History: Yes Surgical History: Cholecystectomy, Other - Family History History of Family Medical Conditions: Yes Family Medical History: Cancer, Heart Failure - Social History Does patient currently use any type of tobacco product: No Have you used tobacco products in the last 12 months: No Type of Tobacco Use: None Does any household member use tobacco: No Alcohol Use: None Do you use any recreational Drugs:: No Lives With: Alone Lives Where: Home - infectious screening In the last 2 months have you had wt loss of >10#?: NO Have you had fever, night sweats or hemotysis?: No Have you traveled outside the country in the last 6 months?: No Isolation: Standard ROS - Review of Systems Eyes: No Symptoms Reported ENTM: No Symptoms Reported Respiratoy: No Symptoms Reported Cardiovascular: No Symptoms Reported Gastrointestinal/Abdominal: No Symptoms Reported Genitourinary: No Symptoms Reported Neurological: No Symptoms Reported Musculoskeletal: No Symptoms Reported Integumentary: No Symptoms Reported Hematologic/Lymphatic: No Symptoms Reported Endocrine: No Symptoms Reported Psychiatric: No Symptoms Reported All Other Systems: Reviewed and Negative PE - Vital Signs Vitals: Temperature 97.6 F Pulse Rate [Right Brachial] 90 Pulse Rate 102 Respiratory Rate 18 Blood Pressure [Right Arm] 214/100 Blood Pressure [Left Arm] 153/84 Blood Pressure 232/109 O2 Sat by Pulse Oximetry 98 - General Limitations: No Limitations General Appearance: Alert, In No Apparent Distress - Head Head Exam: Normal Inspection, Atraumatic - Eyes Eye exam: Normal Appearance, PERRL, EOMI - ENT ENT Exam: Normal Exam External Ear Exam: Normal External Inspection TM/Canal Exam: Bilateral Normal Nose Exam: Normal Nose Exam Mouth Exam: Normal Inspection Throat Exam: Normal Inspection - Neck Neck Exam: Normal Inspection - Chest Chest Inspection: Normal Inspection, Symmetric Chest Wall Rise - Cardiovascular Cardiovascular Exam: Regular Rate, Normal Rhythm - Abdominal Exam Abdominal Exam: Normal Inspection, Normal Bowel Sounds Abdominal Tenderness: negative: RUQ, RLQ, LUQ, LLQ, Epigastrium, Suprapubic, Diffuse, Mild, Moderate, Severe, Other - Extremities Extremities Exam: Normal Inspection - Back Back Exam: Normal Inspection - Neurologic Neurological Exam: Alert, Oriented X3, CN II-XII Intact - Psychiatric Psychiatric Exam: Normal Affect, Normal Mood, Depressed - Skin Skin Exam: Warm, Dry, Intact Course - Education/Counseling Educated On: Treatment, Diagnosis, Prognosis, Needs for Follow Up ROR - Labs Reviewed Result Diagrams: 02/21/18 08:39 02/21/18 08:39 Laboratory: Sodium 140 mmol/L (136-145) 02/21/18 08:39 Corrected Sodium 141 mmol/L (136-145) 02/21/18 08:39 Potassium 4.9 mmol/L (3.5-5.1) 02/21/18 08:39 Chloride 99 mmol/L (98-107) 02/21/18 08:39 Carbon Dioxide 27.2 mmol/L (21-32) 02/21/18 08:39 BUN 52 mg/dL (7-18) H 02/21/18 08:39 Creatinine 7.93 mg/dL (0.55-1.02) H 02/21/18 08:39 Est GFR (MDRD) Af Amer 7 (>60) L 02/21/18 08:39 Est GFR (MDRD) Non-Af 6 (>60) L 02/21/18 08:39 Glucose 139 mg/dL (65-99) H 02/21/18 08:39 Calcium 8.8 mg/dL (8.5-10.1) 02/21/18 08:39 Corrected Calcium TNP 02/21/18 08:39 Total Bilirubin 0.40 mg/dL (0.2-1.0) 02/21/18 08:39 AST 15 Units/L (15-37) 02/21/18 08:39 ALT 14 Units/L (12-78) 02/21/18 08:39 Alkaline Phosphatase 70 Units/L (46-116) 02/21/18 08:39 C-Reactive Protein 1.10 mg/L (0-3.0) 02/21/18 08:39 Total Protein 8.1 g/dL (6.4-8.2) 02/21/18 08:39 Albumin 3.4 g/dL (3.4-5.0) 02/21/18 08:39 Globulin 4.7 g/dL (2.5-4.5) H 02/21/18 08:39 Albumin/Globulin Ratio 0.7 Ratio (1.1-2.1) L 02/21/18 08:39 - XRAY XRAY Interpreted by: Radiologist (Findings: There is normal alignment without fracture or compression. There are mild to moderate degenerative osteophytes about the upper lumbar spine primarily at L2-3 and L3-4. There are mild degenerative osteophytes about the lower lumbar facet joints. The sacroiliac joints are unremarkable. There is moderate diffuse bulgine of the dis at L3-4. There is mild butlgin of the disc at L4-5. There partially visualized polycustic left kidey.) - Diagnosis Discharge Problem: Degenerative Disc Bulging L3-4, Mild Bulging disc at L4-5, Mild to mod DJD L2- 3 and L3-4 - Discharge Plan Condition: Stable - Follow ups/Referrals Follow ups/Referrals: Demetrius Guardado [Primary Care Provider] - 3 days - Instructions
[2018-02-21] MEDS ORDERED: DILAUDID INJ IM PRN (08:42)
[2018-02-21 08:57] LABS: BASOPHILS # (AUTO) 0.1 X10^3/uL (0.0-0.1); EOSINOPHILS # (AUTO) 0.2 x10^3/uL (0.0-0.2); EOSINOPHILS % (AUTO) 2.4 % (0.9-2.9); HEMATOCRIT 33.1 % (36.0-47.0); HEMOGLOBIN 11.5 g/dL (12.0-16.0); LYMPHOCYTES # (AUTO) 1.4 X10^3/uL (1.3-2.9); MEAN CORPUSCULAR HGB CONC 34.7 g/dL (33.0-35.0); MEAN CORPUSCULAR VOLUME 106.5 fL (80.0-100.0); MEAN PLATELET VOLUME 6.6 fL (7.4-11.0); MONOCYTES # (AUTO) 0.5 x10^3/uL (0.3-0.8); NEUTROPHILS # (AUTO) 4.7 x10^3/uL (2.2-4.8); NEUTROPHILS % (AUTO) 68.6 % (42.0-75.0); PLATELET COUNT 180 X10^3/uL (150.0-450.0); RED BLOOD COUNT 3.11 X10^6/uL (3.5-5.4); RED CELL DISTRIBUTION WIDTH 14.4 % (11.6-16.5); WHITE BLOOD COUNT 6.8 X10^3/uL (3.6-10.0)
[2018-02-21 09:05] LABS: ALANINE AMINOTRANSFERASE 14 Units/L (12-78); ALBUMIN 3.4 g/dL (3.4-5.0); ALKALINE PHOSPHATASE 70 Units/L (46-116); ASPARTATE AMINO TRANSFERASE 15 Units/L (15-37); BLOOD UREA NITROGEN 52 mg/dL (7-18); CALCIUM 8.8 mg/dL (8.5-10.1); CARBON DIOXIDE 27.2 mmol/L (21-32); CHLORIDE 99 mmol/L (98-107); COR NA(FOR HYPERGLY) 141 mmol/L (136-145); CREATININE 7.93 mg/dL (0.55-1.02); SODIUM 140 mmol/L (136-145); TOTAL PROTEIN 8.1 g/dL (6.4-8.2); eGFR BLACK RACES 7 (>60); eGFR NON BLACK RACES 6 (>60)
--- NOTE | 2018-02-21 09:11 | CT ---
History: Back pain for 4 days F study: CT lumbar spine without IV contrast. Sagittal and coronal refo rmations were provided. Comparison: None Findings: There is normal alignment without fracture or compression. There are [id number]-hr-[id number] degen erative osteophytes about the upper lumbar spine primarily at L2-3 and L3-4. There are mild degenerat jeannine osteophytes about the lower lumbar facet joints. The sacroiliac joints are unremarkable. There is moderate diffuse bulging of the disc at L3-4. There is mild bulging of the disc at L4-5. There is partially visualized severe polycystic left kidney. Impression: Lumbar degenerative disc disease and bulging discs, most prominent at L3-4. Reported By:
[2018-02-21 09:23] LABS: PLATELET MORPHOLOGY COMMENT NORMAL (NORMAL)
[2018-02-21 09:39] VITALS: BP 194/97
== END 2018-02-21 09:44 | disposition home or self-care (01) ==
LOC: ER 07:42
DX: J06.9 Acute upper respiratory infection, unspecified (principal); R50.9 Fever, unspecified; R68.83 Chills (without fever); M51.27 Other intervertebral disc displacement, lumbosacral region; M51.36 Other intervertebral disc degeneration, lumbar region
CPT/HCPCS: 36415; 72131; 80053; 85025; 86140; 87040; 96372; 99282; 99283; A4222; J1170

== ENCOUNTER 2018-04-11 13:21 | Emergency (ER) | payer OTHER, BC ==
[2018-04-11 13:35] VITALS: BMI 24.2
--- NOTE | 2018-04-11 13:49 | DR.GENAD ---
HPI - PCP Primary Care Physician: dayami - Complaint/Symptoms Chief Complaint Doctors Comments: Patient presented to the ED to r/o Pulmonary embolus of flynn 58 y/o patient who states the she has had the knot in her left calf for three weeks. It has gone done in size. It was discolored initially but not at this time. There is no pain at the site and denies dyspena. She does admit to RUQ pain for two weeks. She also has RUQ pain for several weeks. She has a history of polycystic kidney disease with right nephrectomy. Chief Complaint:: " knot in right lower leg the size of a golf ball, sent per Margareth Walker to rule out DVT, pt alos have pain in abdomen that has been going on for several months." pt had dialysis this morning. Self Treatment fo Chief Complaint: pt just took blood pressure at 1 this afternoon - Source History Provided: Patient - Mode of Arrival Mode of Arrival: Ambulatory - Timing Onset of Chief Complaint: 03/24/18 PMH - PMH Past Medical History: Yes Past Medical History: Diabetes, Hypertension, Renal Disease Past Medical History Comment: pt only has one kidney Past Surgical History: Yes Surgical History: Cholecystectomy, Other - Family History History of Family Medical Conditions: Yes Family Medical History: Cancer, Heart Failure - Social History Does patient currently use any type of tobacco product: No Have you used tobacco products in the last 12 months: No Type of Tobacco Use: None Does any household member use tobacco: No Alcohol Use: None Do you use any recreational Drugs:: No Lives With: Alone Lives Where: Home - infectious screening In the last 2 months have you had wt loss of >10#?: NO Have you had fever, night sweats or hemotysis?: No Have you traveled outside the country in the last 6 months?: No Isolation: Standard ROS - Review of Systems Eyes: No Symptoms Reported ENTM: No Symptoms Reported Respiratoy: No Symptoms Reported Cardiovascular: No Symptoms Reported Gastrointestinal/Abdominal: No Symptoms Reported Genitourinary: No Symptoms Reported Neurological: No Symptoms Reported Musculoskeletal: No Symptoms Reported Integumentary: No Symptoms Reported Hematologic/Lymphatic: No Symptoms Reported Endocrine: No Symptoms Reported Psychiatric: No Symptoms Reported All Other Systems: Reviewed and Negative PE - Vital Signs Vitals: Temperature 97.9 F Pulse Rate 75 Respiratory Rate 18 Blood Pressure [Right Arm] 184/82 Blood Pressure [Left Arm] 153/84 Blood Pressure 199/90 O2 Sat by Pulse Oximetry 99 - General Limitations: No Limitations General Appearance: Alert, In No Apparent Distress - Head Head Exam: Normal Inspection, Atraumatic - Eyes Eye exam: Normal Appearance, PERRL, EOMI - ENT ENT Exam: Normal Exam, Normal Oropharynx External Ear Exam: Normal External Inspection TM/Canal Exam: Bilateral Normal Nose Exam: Normal Nose Exam Throat Exam: Normal Inspection - Neck Neck Exam: Normal Inspection - Chest Chest Inspection: Normal Inspection - Respiratory Respiratory Exam: Normal Lung Sounds Bilat Respiratory Exam: Bilateral Clear to Auscultation - Cardiovascular Cardiovascular Exam: Regular Rate, Normal Rhythm - Abdominal Exam Abdominal Exam: Normal Inspection, Normal Bowel Sounds Abdominal Tenderness: RUQ, LUQ - Extremities Extremities Exam: Normal Inspection, Full ROM, Other (non tender papule left calf) - Back Back Exam: Normal Inspection, Full ROM - Neurologic Neurological Exam: Alert, Oriented X3, CN II-XII Intact - Psychiatric Psychiatric Exam: Normal Affect - Skin Skin Exam: Warm, Dry Course - Treatment Treatment: Labetalol 10mg IV BP decreased to 182/84--patient states that she will take her medication as instructed and follow up with her primary care provider on next week. - Reevaluation 1st: Improved ROR - Labs Reviewed Result Diagrams: 04/11/18 14:15 04/11/18 14:15 Laboratory: WBC 6.0 X10^3/uL (3.6-10.0) 04/11/18 14:15 RBC 3.00 X10^6/uL (3.5-5.4) L 04/11/18 14:15 Hgb 11.0 g/dL (12.0-16.0) L 04/11/18 14:15 Hct 30.9 % (36.0-47.0) L 04/11/18 14:15 MCV 103.3 fL (80.0-100.0) H 04/11/18 14:15 MCH 36.7 pg (27.0-34.0) H 04/11/18 14:15 MCHC 35.5 g/dL (33.0-35.0) H 04/11/18 14:15 RDW 13.5 % (11.6-16.5) 04/11/18 14:15 Plt Count 190 X10^3/uL (150.0-450.0) 04/11/18 14:15 MPV 7.2 fL (7.4-11.0) L 04/11/18 14:15 Neut % (Auto) 58.9 % (42.0-75.0) 04/11/18 14:15 Lymph % (Auto) 28.2 % (21.0-51.0) 04/11/18 14:15 [place] % (Auto) 8.0 % (0.0-13.0) 04/11/18 14:15 Eos % (Auto) 4.2 % (0.9-2.9) H 04/11/18 14:15 Baso % (Auto) 0.7 % (0.2-1.0) 04/11/18 14:15 Neut # (Auto) 3.5 x10^3/uL (2.2-4.8) 04/11/18 14:15 Lymph # (Auto) 1.7 X10^3/uL (1.3-2.9) 04/11/18 14:15 [place] # (Auto) 0.5 x10^3/uL (0.3-0.8) 04/11/18 14:15 Eos # (Auto) 0.3 x10^3/uL (0.0-0.2) H 04/11/18 14:15 Baso # (Auto) 0.0 X10^3/uL (0.0-0.1) 04/11/18 14:15 Absolute Nucleated RBC 0.0 /100WBC 04/11/18 14:15 D-Dimer 1720 ng/mL (0-400) H* 04/11/18 14:15 Sodium 139 mmol/L (136-145) 04/11/18 14:15 Corrected Sodium TNP 04/11/18 14:15 Potassium 3.9 mmol/L (3.5-5.1) 04/11/18 14:15 Chloride 99 mmol/L (98-107) 04/11/18 14:15 Carbon Dioxide 32.2 mmol/L (21-32) H 04/11/18 14:15 BUN 25 mg/dL (7-18) H 04/11/18 14:15 Creatinine 4.47 mg/dL (0.55-1.02) H 04/11/18 14:15 Est GFR (MDRD) Af Amer 13 (>60) L 04/11/18 14:15 Est GFR (MDRD) Non-Af 11 (>60) L 04/11/18 14:15 Glucose 102 mg/dL (65-99) H 04/11/18 14:15 Calcium 7.9 mg/dL (8.5-10.1) L 04/11/18 14:15 Corrected Calcium 8.5 mg/dL (8.5-10.1) 04/11/18 14:15 Total Bilirubin 0.50 mg/dL (0.2-1.0) 04/11/18 14:15 AST 20 Units/L (15-37) 04/11/18 14:15 ALT 12 Units/L (12-78) 04/11/18 14:15 Alkaline Phosphatase 83 Units/L (46-116) 04/11/18 14:15 Total Protein 8.3 g/dL (6.4-8.2) H 04/11/18 14:15 Albumin 3.3 g/dL (3.4-5.0) L 04/11/18 14:15 Globulin 5.0 g/dL (2.5-4.5) H 04/11/18 14:15 Albumin/Globulin Ratio 0.7 Ratio (1.1-2.1) L 04/11/18 14:15 - Diagnosis Discharge Problem: Elevated d-dimer, No Pulmonary Embolus, Renal disease Hypertension Qualifiers: Hypertension type: unspecified Qualified Code(s): I10 - Essential (primary) hypertension - Discharge Plan Condition: Stable - Follow ups/Referrals Follow ups/Referrals: Demetrius Guardado [Primary Care Provider] - 3 days - Instructions
[2018-04-11 14:26] LABS: BASOPHILS % (AUTO) 0.7 % (0.2-1.0); EOSINOPHILS # (AUTO) 0.3 x10^3/uL (0.0-0.2); EOSINOPHILS % (AUTO) 4.2 % (0.9-2.9); HEMATOCRIT 30.9 % (36.0-47.0); LYMPHOCYTES # (AUTO) 1.7 X10^3/uL (1.3-2.9); LYMPHOCYTES % (AUTO) 28.2 % (21.0-51.0); MEAN CORPUSCULAR HEMOGLOBIN 36.7 pg (27.0-34.0); MEAN CORPUSCULAR HGB CONC 35.5 g/dL (33.0-35.0); MEAN CORPUSCULAR VOLUME 103.3 fL (80.0-100.0); MEAN PLATELET VOLUME 7.2 fL (7.4-11.0); MONOCYTES # (AUTO) 0.5 x10^3/uL (0.3-0.8); NEUTROPHILS # (AUTO) 3.5 x10^3/uL (2.2-4.8); NEUTROPHILS % (AUTO) 58.9 % (42.0-75.0); PLATELET COUNT 190 X10^3/uL (150.0-450.0); RED CELL DISTRIBUTION WIDTH 13.5 % (11.6-16.5)
[2018-04-11 14:39] LABS: ALANINE AMINOTRANSFERASE 12 Units/L (12-78); ALBUMIN 3.3 g/dL (3.4-5.0); ALKALINE PHOSPHATASE 83 Units/L (46-116); BLOOD UREA NITROGEN 25 mg/dL (7-18); CALCIUM 7.9 mg/dL (8.5-10.1); CARBON DIOXIDE 32.2 mmol/L (21-32); CHLORIDE 99 mmol/L (98-107); COR CA(FOR HYPOALB) 8.5 mg/dL (8.5-10.1); CREATININE 4.47 mg/dL (0.55-1.02); SODIUM 139 mmol/L (136-145); TOTAL PROTEIN 8.3 g/dL (6.4-8.2); eGFR BLACK RACES 13 (>60); eGFR NON BLACK RACES 11 (>60)
[2018-04-11 14:41] LABS: ASPARTATE AMINO TRANSFERASE 20 Units/L (15-37)
[2018-04-11] MEDS ORDERED: CATAPRES TAB 0.2 MG PO ONE ×2 (16:19→18:04)
[2018-04-11] MEDS ORDERED: CATAPRES TAB 0.2 MG ONE ×2 (16:20→18:08)
--- NOTE | 2018-04-11 16:36 | VAS ---
HISTORY: Left calf swelling. No known trauma. Study: Left lower extremity venous Doppler Comparison: None TECHNIQUE: Multiple nunez scale and color flow Doppler images of the deep venous system were obtained of the left lower extremity. FINDINGS: The deep venous system of the left lower extremity was evaluated from the level of the common femoral vein through the popliteal vein. Normal color flow and augmentation can be observed. In addition, normal compression is seen throughout the deep venous system. Posterior to the calf, within the subcutaneous adipose tissue, there is a complex hypoechoic mass whi ch measures 1.5 by 0.8 by 1.3 cm. This mass demonstrates mildly heterogeneous low level internal echo es, with a small amount of flow at its periphery. No internal flow seen on Doppler imaging. There is adjacent edema noted. IMPRESSION: 1. Negative for DVT. 2. Nonspecific complex mass along the posterior aspect of the calf as discussed above. This may repre sent a hematoma, however, this would be unusual given the lack of recent trauma. If there are clinica l signs of infection, this could represent an abscess. Therefore clinical correlation is required. Pl ease note that a soft tissue neoplasm cannot be excluded. Therefore if clinical assessment does not i ndicate possible traumatic or infectious etiology, correlation with contrast-enhanced MRI would be re commended. Reported By:
[2018-04-11] MEDS ORDERED: NORMODYNE INJ 20 MG VIAL IVP PRN ×2 (18:02→20:12)
[2018-04-11] MEDS ORDERED: NORVASC TAB 5 MG ONE (19:05)
[2018-04-11] MEDS ORDERED: NORVASC TAB 5 MG PO ONE (19:06)
[2018-04-11] MEDS ORDERED: NORMODYNE INJ 20 MG VIAL ONE (20:12)
[2018-04-11 20:19] VITALS: BP 184/82
== END 2018-04-11 20:32 | disposition home or self-care (01) ==
LOC: ER 13:29
DX: I10 Essential (primary) hypertension (principal); N28.9 Disorder of kidney and ureter, unspecified; R79.1 Abnormal coagulation profile; R22.41 Localized swelling, mass and lump, right lower limb
CPT/HCPCS: 36415; 80053; 85025; 85378; 93971; 96365; 96374; 99283; A4222; J3490

== ENCOUNTER 2019-10-20 12:16 | Inpatient (IN) ==
[2019-10-20] MEDS ORDERED: NS 1/2 1000 ML IV 1,000 ML IV ONE (14:18)
[2019-10-20 14:19] LABS: BASOPHILS % (AUTO) 0.8 % (0.2-1.0); EOSINOPHILS # (AUTO) 0.1 x10^3/uL (0.0-0.2); HEMATOCRIT 33.1 % (36.0-47.0); HEMOGLOBIN 11.1 g/dL (12.0-16.0); LYMPHOCYTES # (AUTO) 1.1 X10^3/uL (1.3-2.9); LYMPHOCYTES % (AUTO) 25.7 % (21.0-51.0); MEAN CORPUSCULAR HEMOGLOBIN 36.6 pg (27.0-34.0); MEAN CORPUSCULAR HGB CONC 33.6 g/dL (33.0-35.0); MEAN CORPUSCULAR VOLUME 108.9 fL (80.0-100.0); MEAN PLATELET VOLUME 6.9 fL (7.4-11.0); MONOCYTES # (AUTO) 0.3 x10^3/uL (0.3-0.8); MONOCYTES % (AUTO) 7.6 % (0.0-13.0); NEUTROPHILS # (AUTO) 2.8 x10^3/uL (2.2-4.8); NEUTROPHILS % (AUTO) 62.9 % (42.0-75.0); PLATELET COUNT 167 X10^3/uL (150.0-450.0); RED BLOOD COUNT 3.04 X10^6/uL (3.5-5.4); RED CELL DISTRIBUTION WIDTH 17.8 % (11.6-16.5); WHITE BLOOD COUNT 4.4 X10^3/uL (3.6-10.0)
[2019-10-20 14:25] LABS: ANISOCYTOSIS SLIGHT; PLATELET MORPHOLOGY COMMENT NORMAL (NORMAL)
[2019-10-20 14:33] VITALS: BMI 24.7
[2019-10-20 14:33] LABS: ALANINE AMINOTRANSFERASE 17 Units/L (12-78); ALBUMIN 3.6 g/dL (3.4-5.0); ALKALINE PHOSPHATASE 134 Units/L (46-116); ASPARTATE AMINO TRANSFERASE 21 Units/L (15-37); BLOOD UREA NITROGEN 36 mg/dL (7-18); CHLORIDE 97 mmol/L (98-107); COR NA(FOR HYPERGLY) 141 mmol/L (136-145); SODIUM 138 mmol/L (136-145); TOTAL PROTEIN 8.8 g/dL (6.4-8.2); eGFR NON BLACK RACES 7 (>60)
[2019-10-20] MEDS: NS 1/2 1000 ML IV 1,000 ML IV SCH (14:45)
[2019-10-20] MEDS: VSL#3 PO SCH (14:45)
[2019-10-20] MEDS: TUSSIONEX PENNKINETIC SUSP PO PRN (14:45)
[2019-10-20] MEDS: ROBITUSSIN DM PO SCH ×3 (14:45→21:05)
[2019-10-20] MEDS ORDERED: SALINE 3% 15 ML NEB TX NEB ONE (14:51)
[2019-10-20] MEDS ORDERED: LEVAQUIN PREMIX IV 750 MG 750 MG/150 ML BAG IV ONE (15:00)
--- NOTE | 2019-10-20 15:44 | RAD ---
HISTORY: Cough, pneumonia prior history of renal failure, hypertension and diabetes. Study: Two-view chest Comparison: 12/07/2016. Findings: There is endovascular stent present involving left axillary region. Trachea is midline there is cardiomegaly and marked prominence of pulmonary vessels. There are areas increased parenchymal density involving the lungs in lower lobe regions bilaterally, which may represent foci infiltrate, less likely edema. No evidence CHF is seen. Osseous structures are intact. IMPRESSION: Cardiomegaly with marked pulmonary vascular congestion. Bibasilar foci of infiltrate or edema are present. Reported By:
[2019-10-20] MEDS: DUONEB 0.5 MG/3 MG (3 mL) NEB SCH ×2 (16:15→20:28)
[2019-10-20] MEDS: ASPIRIN EC 81 MG PO SCH (18:30)
--- NOTE | 2019-10-20 20:20 | CT ---
History: Shortness of breath and pneumonia Exam: CT chest with contrast Comparison: None Technique: Axial spiral images were obtained from the level above the clavicles through the adrenals after administration of IV contrast. The patient has renal failure and is scheduled for dialysis in the a.m. The exam was approved by Dr. Avitia. Findings: The thyroid gland is unremarkable. There is mild calcified plaque throughout the aorta which is well opacified and normal caliber with no filling defects. The pulmonary arteries are prominent centrally with no obvious filling defects seen. There is a small right pleural effusion layering posteriorly with mild right basilar opacity . The heart is mildly enlarged with no mediastinal mass or adenopathy. The adrenals are normal . The liver and spleen are mildly enlarged. The lungs are hyperinflated with some ground-glass opacities along both upper lobes extending into the perihilar regions with subsegmental opacities along the lingula and right middle lobe anteriorly along both lung bases. The pulmonary nodule or mass is seen . There is no endobronchial lesion. The bones are intact. IMPRESSION: Mild calcified plaque throughout the aorta with no aneurysm or dissection. Prominent central pulmonary arteries which may be due to pulmonary artery hypertension no filling defects . Mild cardiomegaly . Small right pleural effusion with mild right basilar atelectasis or early infiltrates . Hazy ground-glass opacities along the upper lobes and subsegmental opacities scattered along the lung bases which could represent early multisegmental bronchopneumonia. Mild hepatosplenomegaly. Reported By:
[2019-10-20] MEDS: CATAPRES TAB 0.2 MG PO SCH (21:05)
[2019-10-20] MEDS: COLACE CAP 100 MG PO SCH (21:05)
[2019-10-20] MEDS: CARAFATE PO SCH (21:05)
[2019-10-20] MEDS: ZOSYN VIAL 2.25 GRAMS 2.25 G in NS 100 ML IV + SPIKE MINIBAG* 100 ML IV SCH (21:05)
[2019-10-20] MEDS: NORVASC TAB 5 MG PO SCH (21:05)
[2019-10-20] MEDS: BENTYL CAP 10 MG PO SCH (21:05)
[2019-10-20] MEDS ORDERED: CLONIDINE HCL 0.2 MG PO SCH (22:00)
[2019-10-21] MEDS: DUONEB 0.5 MG/3 MG (3 mL) NEB SCH ×5 (01:10→20:40)
[2019-10-21] MEDS: NS 1/2 1000 ML IV 1,000 ML IV SCH ×3 (04:13→18:05)
[2019-10-21] MEDS ORDERED: NS 1/2 1000 ML IV 1,000 ML IV ONE (05:01)
[2019-10-21 05:49] LABS: EOSINOPHILS # (AUTO) 0.1 x10^3/uL (0.0-0.2); EOSINOPHILS % (AUTO) 2.3 % (0.9-2.9); HEMATOCRIT 28.4 % (36.0-47.0); HEMOGLOBIN 9.7 g/dL (12.0-16.0); LYMPHOCYTES % (AUTO) 21.8 % (21.0-51.0); MEAN CORPUSCULAR HGB CONC 34.2 g/dL (33.0-35.0); MEAN PLATELET VOLUME 7.3 fL (7.4-11.0); MONOCYTES # (AUTO) 0.5 x10^3/uL (0.3-0.8); MONOCYTES % (AUTO) 11.2 % (0.0-13.0); NEUTROPHILS % (AUTO) 63.7 % (42.0-75.0); PLATELET COUNT 133 X10^3/uL (150.0-450.0); RED BLOOD COUNT 2.63 X10^6/uL (3.5-5.4); RED CELL DISTRIBUTION WIDTH 17.6 % (11.6-16.5); WHITE BLOOD COUNT 4.7 X10^3/uL (3.6-10.0)
[2019-10-21] MEDS: ZOSYN VIAL 2.25 GRAMS 2.25 G in NS 100 ML IV + SPIKE MINIBAG* 100 ML IV SCH ×3 (05:55→22:08)
[2019-10-21] MEDS: CARAFATE PO SCH ×3 (05:57→22:07)
[2019-10-21] MEDS: CATAPRES TAB 0.2 MG PO SCH ×3 (05:57→22:07)
[2019-10-21] MEDS: BENTYL CAP 10 MG PO SCH ×3 (05:57→22:06)
[2019-10-21 05:58] LABS: CALCIUM 7.6 mg/dL (8.5-10.1); CARBON DIOXIDE 31.5 mmol/L (21-32); COR CA(FOR HYPOALB) 8.4 mg/dL (8.5-10.1); CREATININE 6.74 mg/dL (0.55-1.02); TOTAL PROTEIN 7.4 g/dL (6.4-8.2)
[2019-10-21 06:09] LABS: ANISOCYTOSIS SLIGHT; PLATELET MORPHOLOGY COMMENT NORMAL (NORMAL)
--- NOTE | 2019-10-21 06:36 | RAD ---
HISTORY: Shortness of breath Study: Chest AP portable Comparison: 10/20/2019 plain film and chest CT Findings: Heart remains enlarged. Pulmonary venous congestion is present. No interstitial edema, alveolar edema, or visible alveolar infiltrates or consolidation identified. The infiltrates noted on the recent CT are not well demonstrated on plain film and follow-up should be with CT. No pleural effusions are identified. The bony thorax is unremarkable. There is a vascular stent in the left axilla. IMPRESSION: Continued cardiomegaly with pulmonary venous congestion No definite infiltrates identified. The infiltrates visualized on the recent CT are not well demonstrated on plain film Reported By:
[2019-10-21] MEDS ORDERED: SEVELAMER CARBONATE 1600 MG PO SCH (09:00)
--- NOTE | 2019-10-21 10:50 | DR.UPDATE ---
H&P Update History and Physical Update: History and Physical reviewed and patient examined. Changes noted: Yes with the following: WAS SEEN IN THE OFFICE FOR REPORTS OF PERSISTENT AND PRODUCTIVE COUGH AND SHORTNESS OF BREATH. SHE HAS TAKEN CIPRO, AUGMENTIN, AND CEFDINIR WITHOUT IMPROVMEENT IN SYMPTOMS. SHE WAS ADMITTED FOR FURTHER EVALUATION AND TREATMENT OF PNEUMONIA. WE WILL START THE PNEUMONIA PROTOCOL WITH IV ZOSYN AND IV LEVAQUIN. WE WILL START REPIRATORY TREATMENTS WITH SUPPLEMENTAL OXYGEN. SHE RECEIVES DIALYSIS ON , SATURDAY, AND FRIDAYS. SHE IS SCHEDULED TO RECEIVE DIALYSIS TOMORROW. WE WILL OBTAIN LABS AND CHEST XRAY ON ADMISSION. OTHERWISE, WE WILL FOLLOW UP WITH AM LABS AND CONTINUE TO MONITOR. Prescription drug monitoring program results: PDMP was not reviewed H&P Reviewed: Yes Patient was examined?: Yes
[2019-10-21] MEDS ORDERED: TOPROL XL PO ONE (11:06)
[2019-10-21] MEDS: SYNTHROID 112 mcg TAB PO SCH (11:11)
[2019-10-21] MEDS: RENAGEL PO SCH (11:11)
[2019-10-21] MEDS: ASPIRIN EC 81 MG PO SCH (11:11)
[2019-10-21] MEDS: COLACE CAP 100 MG PO SCH ×2 (11:12→22:06)
[2019-10-21] MEDS: TOPROL XL PO SCH (11:12)
[2019-10-21] MEDS: VSL#3 PO SCH (11:12)
[2019-10-21] MEDS: LIPITOR TAB 40 MG PO SCH (11:12)
[2019-10-21] MEDS: ROBITUSSIN DM PO SCH ×5 (11:13→22:07)
[2019-10-21] MEDS: NORVASC TAB 5 MG PO SCH ×2 (11:16→22:06)
--- NOTE | 2019-10-21 17:20 | PCM.PROG ---
Progress Note - Progress Note for Day of Date of Exam: 10/21/19 - Subjective Subjective: WAS ADMITTED FOR TREATMENT OF PNEUMONIA. TODAY, SHE IS ALERT AND ORIENTED, LYING IN BED ON MORNING ROUNDS. SHE CONTINUES WITH COMPLAINTS OF COUGH AND SHORTNESS OF BREATH TODAY. ON EXAMINATION, HEART IS REGULAR IN RATE AND RHYTHM. BILATERAL LUNGS ARE NOTED WITH SCATTERED WHEEZING AND RHONCHI THROUGHOUT. ABDOMEN IS ROUND, SOFT, AND NON-TENDER WITH NORMAL BOWEL SOUNDS NOTED IN ALL QUADRANTS. HER VITALS THIS MORNING ARE: 97.8-72-18-94%-183/73. LABS WERE OBTAINED. ABNORMAL LAB VALUES INCLUDE THE FOLLOWING: RBC 2.63, HGB 9.7, HCT 28.4, PLT OCUNT 133, SODIUM 135, CHLORIDE 96, BUN 41, CREATININE 6.74, GLUCOSE 194, CALCIUM 7.6, ALK PHOS 117, ALBUMIN 3.0. A CHEST XRAY WAS OBTAINED TODAY AND REVEALED: Continued cardiomegaly with pulmonary venous congestion. No definite infiltrates identified. The infiltrates visualized on the recent CT are not well demonstrated on plain film. SHE IS SCHEDULED TO RECEIVE DIALYSIS TODAY. SHE IS CURRENTLY RECEIVING IV ZOSYN, IV LEVAQUIN, IV FLUIDS, AND RESPIRATORY TX. WE WILL CONTINUE WITH CURRENT PLAN OF CARE TODAY. OTHERWISE, WE WILL FOLLOW UP WITH AM LABS AND CONTINUE TO MONITOR. - Past Medical Family Social History Past Med/Fam/Surg Hx: No changes since H&P Allergies: Allergies No Known Drug Allergies Allergy (Verified 10/13/17 14:56) - Review of Systems ROS: No change since H&P - Vital Signs and I&O's Vital Signs: Temperature 98.3 F Pulse Rate [Right Brachial] 63 Pulse Rate 72 Respiratory Rate 18 Blood Pressure [Right Arm] 152/65 Blood Pressure [Left Arm] 153/84 Blood Pressure 197/96 O2 Sat by Pulse Oximetry 98 Intake and Output: Intake & Output 10/19/19 10/20/19 10/21/19 10/22/19 11:59 11:59 11:59 11:59 Intake Total 880 / 880 380 / 380 Output Total 0 / 0 0 / 0 Balance 880 / 880 380 / 380 - Physical Exam Oriented: Normal Eyes: Normal Ear: Normal Nose: Normal Throat: Normal Respiratory: Generalized, Wheezes, Rhonchi Cardiovascular: Normal. negative: S3, S4, Murmur : Normal Auscultation: Bowel Sounds: Normal Palpation: Normal Tenderness: Normal Skin: Normal Musculoskeletal: Normal Psychiatric: Normal Mood Description: Calm Affect: Normal Speech Pattern: Clear, Appropriate - Laboratory and Diagnostics Result Diagrams: 10/21/19 05:25 10/21/19 05:25 Labs: 10/20/19 15:51 Sputum - Expectorated Sputum Sputum Culture - Preliminary 10/20/19 15:51 Sputum - Expectorated Sputum - Final Laboratory WBC 4.7 X10^3/uL (3.6-10.0) 10/21/19 05:25 RBC 2.63 X10^6/uL (3.5-5.4) L 10/21/19 05:25 Hgb 9.7 g/dL (12.0-16.0) L 10/21/19 05:25 Hct 28.4 % (36.0-47.0) L 10/21/19 05:25 MCV 108.0 fL (80.0-100.0) H 10/21/19 05:25 MCH 37.0 pg (27.0-34.0) H 10/21/19 05:25 MCHC 34.2 g/dL (33.0-35.0) 10/21/19 05:25 RDW 17.6 % (11.6-16.5) H 10/21/19 05:25 Plt Count 133 X10^3/uL (150.0-450.0) L 10/21/19 05:25 Plt Count Comment Adequate (ADEQUATE) 10/21/19 05:25 MPV 7.3 fL (7.4-11.0) L 10/21/19 05:25 Neut % (Auto) 63.7 % (42.0-75.0) 10/21/19 05:25 Lymph % (Auto) 21.8 % (21.0-51.0) 10/21/19 05:25 [place] % (Auto) 11.2 % (0.0-13.0) 10/21/19 05:25 Eos % (Auto) 2.3 % (0.9-2.9) 10/21/19 05:25 Baso % (Auto) 1.0 % (0.2-1.0) 10/21/19 05:25 Neut # (Auto) 3.0 x10^3/uL (2.2-4.8) 10/21/19 05:25 Lymph # (Auto) 1.0 X10^3/uL (1.3-2.9) L 10/21/19 05:25 [place] # (Auto) 0.5 x10^3/uL (0.3-0.8) 10/21/19 05:25 Eos # (Auto) 0.1 x10^3/uL (0.0-0.2) 10/21/19 05:25 Baso # (Auto) 0.0 X10^3/uL (0.0-0.1) 10/21/19 05:25 Absolute Nucleated RBC 0.2 /100WBC 10/21/19 05:25 Plt Morphology Comment Normal (NORMAL) 10/21/19 05:25 RBC Morphology Abnormal (NORMAL) A 10/21/19 05:25 Anisocytosis Slight A 10/21/19 05:25 Macrocytosis 1+ A 10/21/19 05:25 Sodium 135 mmol/L (136-145) L 10/21/19 05:25 Corrected Sodium 137 mmol/L (136-145) 10/21/19 05:25 Potassium 5.0 mmol/L (3.5-5.1) 10/21/19 05:25 Chloride 96 mmol/L (98-107) L 10/21/19 05:25 Carbon Dioxide 31.5 mmol/L (21-32) 10/21/19 05:25 BUN 41 mg/dL (7-18) H 10/21/19 05:25 Creatinine 6.74 mg/dL (0.55-1.02) H 10/21/19 05:25 Est GFR (MDRD) Af Amer 8 (>60) L 10/21/19 05:25 Est GFR (MDRD) Non-Af 7 (>60) L 10/21/19 05:25 Glucose 194 mg/dL (65-99) H 10/21/19 05:25 POC Glucose (mg/dL) 146 mg/dL (65-99) H 10/21/19 16:52 Calcium 7.6 mg/dL (8.5-10.1) L 10/21/19 05:25 Corrected Calcium 8.4 mg/dL (8.5-10.1) L 10/21/19 05:25 Total Bilirubin 0.90 mg/dL (0.2-1.0) 10/21/19 05:25 AST 17 Units/L (15-37) 10/21/19 05:25 ALT 14 Units/L (12-78) 10/21/19 05:25 Alkaline Phosphatase 117 Units/L (46-116) H 10/21/19 05:25 Total Protein 7.4 g/dL (6.4-8.2) 10/21/19 05:25 Albumin 3.0 g/dL (3.4-5.0) L 10/21/19 05:25 Globulin 4.4 g/dL (2.5-4.5) 10/21/19 05:25 Albumin/Globulin Ratio 0.7 Ratio (1.1-2.1) L 10/21/19 05:25 - Plan (1) Pneumonia Status: Acute Qualifiers: Pneumonia type: due to unspecified organism Laterality: unspecified laterality Lung location: unspecified part of lung Qualified Code(s): J18.9 - Pneumonia, unspecified organism Plan: IV ZOSYN, IV LEVAQUIN, RESPIRATORY TX, SUPPLEMENTAL OXYGEN, CONTINUE TO MONITOR
[2019-10-21] MEDS ORDERED: AMLODIPINE BESYLATE 5 MG PO SCH (21:00)
[2019-10-22] MEDS: DUONEB 0.5 MG/3 MG (3 mL) NEB SCH ×6 (00:55→20:48)
[2019-10-22 05:27] LABS: BASOPHILS # (AUTO) 0.1 X10^3/uL (0.0-0.1); BASOPHILS % (AUTO) 1.3 % (0.2-1.0); EOSINOPHILS # (AUTO) 0.1 x10^3/uL (0.0-0.2); EOSINOPHILS % (AUTO) 2.3 % (0.9-2.9); HEMATOCRIT 27.8 % (36.0-47.0); HEMOGLOBIN 9.4 g/dL (12.0-16.0); LYMPHOCYTES # (AUTO) 0.8 X10^3/uL (1.3-2.9); MEAN CORPUSCULAR HEMOGLOBIN 36.9 pg (27.0-34.0); MEAN CORPUSCULAR HGB CONC 33.7 g/dL (33.0-35.0); MEAN CORPUSCULAR VOLUME 109.5 fL (80.0-100.0); MEAN PLATELET VOLUME 7.5 fL (7.4-11.0); MONOCYTES # (AUTO) 0.5 x10^3/uL (0.3-0.8); MONOCYTES % (AUTO) 10.9 % (0.0-13.0); NEUTROPHILS # (AUTO) 3.2 x10^3/uL (2.2-4.8); NEUTROPHILS % (AUTO) 68.5 % (42.0-75.0); PLATELET COUNT 118 X10^3/uL (150.0-450.0); RED BLOOD COUNT 2.54 X10^6/uL (3.5-5.4); RED CELL DISTRIBUTION WIDTH 17.4 % (11.6-16.5); WHITE BLOOD COUNT 4.7 X10^3/uL (3.6-10.0)
[2019-10-22] MEDS: BENTYL CAP 10 MG PO SCH ×3 (05:46→21:56)
[2019-10-22] MEDS: ZOSYN VIAL 2.25 GRAMS 2.25 G in NS 100 ML IV + SPIKE MINIBAG* 100 ML IV SCH ×3 (05:46→21:57)
[2019-10-22] MEDS: CARAFATE PO SCH ×3 (05:46→21:56)
[2019-10-22] MEDS: CATAPRES TAB 0.2 MG PO SCH ×3 (05:46→21:56)
[2019-10-22 05:47] LABS: ANISOCYTOSIS SLIGHT; PLATELET MORPHOLOGY COMMENT NORMAL (NORMAL)
[2019-10-22 05:55] LABS: CALCIUM 7.3 mg/dL (8.5-10.1); CARBON DIOXIDE 34.7 mmol/L (21-32); COR CA(FOR HYPOALB) 8.1 mg/dL (8.5-10.1); CREATININE 4.86 mg/dL (0.55-1.02); TOTAL PROTEIN 7.2 g/dL (6.4-8.2)
--- NOTE | 2019-10-22 06:39 | RAD ---
HISTORY: Shortness of breath Study: Chest AP portable Comparison: 10/21/2019 Findings: The heart remains enlarged. Mild pulmonary venous congestion is present. No definite interstitial edema, alveolar edema, alveolar infiltrates or pleural effusions are identified. There is subsegmental atelectasis in the right lung base. The infiltrates visible on the recent chest CT are not well demonstrated on plain film. Bony thorax is unremarkable. IMPRESSION: No significant change from the prior examination Reported By:
[2019-10-22] MEDS ORDERED: TOPROL XL PO ONE (08:06)
[2019-10-22] MEDS: LEVAQUIN PREMIX IV 500 MG 500 MG/100 ML BAG IV SCH (08:34)
[2019-10-22] MEDS: ROBITUSSIN DM PO SCH ×4 (08:35→21:56)
[2019-10-22] MEDS: TOPROL XL PO SCH (08:35)
[2019-10-22] MEDS: ASPIRIN EC 81 MG PO SCH (08:35)
[2019-10-22] MEDS: RENAGEL PO SCH ×2 (08:35→10:18)
[2019-10-22] MEDS: SYNTHROID 112 mcg TAB PO SCH (08:35)
[2019-10-22] MEDS: COLACE CAP 100 MG PO SCH ×2 (08:37→21:55)
[2019-10-22] MEDS: NORVASC TAB 5 MG PO SCH ×2 (08:37→21:56)
[2019-10-22] MEDS: VSL#3 PO SCH (08:37)
[2019-10-22] MEDS: LIPITOR TAB 40 MG PO SCH (08:37)
[2019-10-22] MEDS: TUSSIONEX PENNKINETIC SUSP PO PRN (08:38)
[2019-10-22] MEDS: NS 1/2 1000 ML IV 1,000 ML IV SCH ×2 (10:44→21:57)
[2019-10-22] MEDS: XANAX PO PRN (21:57)
--- NOTE | 2019-10-22 22:35 | PCM.PROG ---
Progress Note - Progress Note for Day of Date of Exam: 10/22/19 - Subjective Subjective: WAS ADMITTED FOR TREATMENT OF PNEUMONIA. TODAY, SHE IS ALERT AND ORIENTED, LYING IN BED ON MORNING ROUNDS. SHE CONTINUES WITH COMPLAINTS OF COUGH AND SHORTNESS OF BREATH TODAY. ON EXAMINATION, HEART IS REGULAR IN RATE AND RHYTHM. BILATERAL LUNGS ARE NOTED WITH SCATTERED WHEEZING AND RHONCHI THROUGHOUT. ABDOMEN IS ROUND, SOFT, AND NON-TENDER WITH NORMAL BOWEL SOUNDS NOTED IN ALL QUADRANTS. HER VITALS THIS MORNING ARE: 98.3-63-20-96%-162/74. LABS WERE OBTAINED. ABNORMAL LAB VALUES INCLUDE THE FOLLOWING: RBC 2.54, HBG 9.4, HCT 27.8, PLT COUNT 118, CHLORIDE 97, CARBON DIOXIDE 34.7, BUN 20, CREATININE 4.86, GLUCOSE 181, CALCIUM 7.3, ALT 11, ALBUMIN 3.0. A CHEST XRAY WAS OBTAINED TODAY AND REVEALED: No significant change from the prior examination. SHE RECEIVED DIALYSIS YESTERDAY AND WILL RECEIVE AGAIN TOMORROW. SHE IS CURRENTLY RECEIVING IV ZOSYN, IV LEVAQUIN, IV FLUIDS, AND R ESPIRATORY TX. WE WILL CONTINUE WITH CURRENT PLAN OF CARE TODAY. OTHERWISE, WE WILL FOLLOW UP WITH AM LABS AND CONTINUE TO MONITOR. - Past Medical Family Social History Past Med/Fam/Surg Hx: No changes since H&P Allergies: Allergies No Known Drug Allergies Allergy (Verified 10/13/17 14:56) - Review of Systems ROS: No change since H&P - Vital Signs and I&O's Vital Signs: Temperature 98.5 F Pulse Rate [Right Brachial] 68 Pulse Rate 68 Respiratory Rate 20 Blood Pressure [Right Arm] 139/67 Blood Pressure [Left Arm] 153/84 Blood Pressure 197/96 O2 Sat by Pulse Oximetry 100 Intake and Output: Intake & Output 10/20/19 10/21/19 10/22/19 10/23/19 11:59 11:59 11:59 11:59 Intake Total 880 / 880 640 / 640 120 / 120 Output Total 0 / 0 0 / 0 Balance 880 / 880 640 / 640 120 / 120 - Physical Exam Oriented: Normal Eyes: Normal Ear: Normal Nose: Normal Throat: Normal Respiratory: Generalized, Wheezes, Rhonchi Cardiovascular: Normal. negative: S3, S4, Murmur : Normal Auscultation: Bowel Sounds: Normal Tenderness: Normal Skin: Normal Musculoskeletal: Normal Psychiatric: Normal Mood Description: Calm Affect: Normal Speech Pattern: Clear, Appropriate - Laboratory and Diagnostics Result Diagrams: 10/22/19 05:08 10/22/19 05:08 Labs: 10/20/19 14:27 Blood Blood Culture - Preliminary 10/20/19 14:10 Blood Blood Culture - Preliminary 10/20/19 15:51 Sputum - Expectorated Sputum Sputum Culture - Final 10/20/19 15:51 Sputum - Expectorated Sputum - Final Laboratory WBC 4.7 X10^3/uL (3.6-10.0) 10/22/19 05:08 RBC 2.54 X10^6/uL (3.5-5.4) L 10/22/19 05:08 Hgb 9.4 g/dL (12.0-16.0) L 10/22/19 05:08 Hct 27.8 % (36.0-47.0) L 10/22/19 05:08 MCV 109.5 fL (80.0-100.0) H 10/22/19 05:08 MCH 36.9 pg (27.0-34.0) H 10/22/19 05:08 MCHC 33.7 g/dL (33.0-35.0) 10/22/19 05:08 RDW 17.4 % (11.6-16.5) H 10/22/19 05:08 Plt Count 118 X10^3/uL (150.0-450.0) L 10/22/19 05:08 Plt Count Comment Decreased (ADEQUATE) A 10/22/19 05:08 MPV 7.5 fL (7.4-11.0) 10/22/19 05:08 Neut % (Auto) 68.5 % (42.0-75.0) 10/22/19 05:08 Lymph % (Auto) 17.0 % (21.0-51.0) L 10/22/19 05:08 [place] % (Auto) 10.9 % (0.0-13.0) 10/22/19 05:08 Eos % (Auto) 2.3 % (0.9-2.9) 10/22/19 05:08 Baso % (Auto) 1.3 % (0.2-1.0) H 10/22/19 05:08 Neut # (Auto) 3.2 x10^3/uL (2.2-4.8) 10/22/19 05:08 Lymph # (Auto) 0.8 X10^3/uL (1.3-2.9) L 10/22/19 05:08 [place] # (Auto) 0.5 x10^3/uL (0.3-0.8) 10/22/19 05:08 Eos # (Auto) 0.1 x10^3/uL (0.0-0.2) 10/22/19 05:08 Baso # (Auto) 0.1 X10^3/uL (0.0-0.1) 10/22/19 05:08 Absolute Nucleated RBC 0.2 /100WBC 10/22/19 05:08 Plt Morphology Comment Normal (NORMAL) 10/22/19 05:08 RBC Morphology Abnormal (NORMAL) A 10/22/19 05:08 Anisocytosis Slight A 10/22/19 05:08 Macrocytosis 1+ A 10/22/19 05:08 Sodium 139 mmol/L (136-145) 10/22/19 05:08 Corrected Sodium 141 mmol/L (136-145) 10/22/19 05:08 Potassium 4.3 mmol/L (3.5-5.1) 10/22/19 05:08 Chloride 97 mmol/L (98-107) L 10/22/19 05:08 Carbon Dioxide 34.7 mmol/L (21-32) H 10/22/19 05:08 BUN 20 mg/dL (7-18) H 10/22/19 05:08 Creatinine 4.86 mg/dL (0.55-1.02) H 10/22/19 05:08 Est GFR (MDRD) Af Amer 12 (>60) L 10/22/19 05:08 Est GFR (MDRD) Non-Af 10 (>60) L 10/22/19 05:08 Glucose 181 mg/dL (65-99) H 10/22/19 05:08 POC Glucose (mg/dL) 146 mg/dL (65-99) H 10/21/19 16:52 Calcium 7.3 mg/dL (8.5-10.1) L 10/22/19 05:08 Corrected Calcium 8.1 mg/dL (8.5-10.1) L 10/22/19 05:08 Total Bilirubin 0.70 mg/dL (0.2-1.0) 10/22/19 05:08 AST 17 Units/L (15-37) 10/22/19 05:08 ALT 11 Units/L (12-78) L 10/22/19 05:08 Alkaline Phosphatase 101 Units/L (46-116) 10/22/19 05:08 Total Protein 7.2 g/dL (6.4-8.2) 10/22/19 05:08 Albumin 3.0 g/dL (3.4-5.0) L 10/22/19 05:08 Globulin 4.2 g/dL (2.5-4.5) 10/22/19 05:08 Albumin/Globulin Ratio 0.7 Ratio (1.1-2.1) L 10/22/19 05:08 - Plan (1) Pneumonia Status: Acute Qualifiers: Pneumonia type: due to unspecified organism Laterality: unspecified laterality Lung location: unspecified part of lung Qualified Code(s): J18.9 - Pneumonia, unspecified organism Plan: IV ZOSYN, IV LEVAQUIN, RESPIRATORY [place], SUPPLEMENTAL OXYGEN, CONTINUE TO MONITOR
[2019-10-23] MEDS: DUONEB 0.5 MG/3 MG (3 mL) NEB SCH ×6 (00:43→20:55)
[2019-10-23] MEDS: ZOSYN VIAL 2.25 GRAMS 2.25 G in NS 100 ML IV + SPIKE MINIBAG* 100 ML IV SCH ×4 (04:13→21:31)
[2019-10-23] MEDS: BENTYL CAP 10 MG PO SCH ×3 (05:15→21:30)
[2019-10-23] MEDS: CATAPRES TAB 0.2 MG PO SCH ×3 (05:16→21:31)
[2019-10-23] MEDS: CARAFATE PO SCH ×3 (05:16→21:30)
[2019-10-23] MEDS: TUSSIONEX PENNKINETIC SUSP PO PRN (05:20)
--- NOTE | 2019-10-23 06:01 | RAD ---
HISTORY: Shortness of breath Study: Chest AP portable Comparison: 10/22/2019 Findings: The heart remains enlarged. Mild pulmonary venous congestion is present. No definite interstitial edema, alveolar edema, or alveolar infiltrates are identified. There is persistent subsegmental atelectasis at the right lung base. There is subsegmental atelectasis in the right perihilar region. No pleural effusions are identified. The bony thorax is unremarkable. IMPRESSION: Continued cardiomegaly without congestive heart failure Hypo inflation with right basilar and right perihilar subsegmental atelectasis Reported By:
[2019-10-23 06:39] LABS: BASOPHILS # (AUTO) 0.1 X10^3/uL (0.0-0.1); BASOPHILS % (AUTO) 1.2 % (0.2-1.0); EOSINOPHILS # (AUTO) 0.1 x10^3/uL (0.0-0.2); EOSINOPHILS % (AUTO) 3.3 % (0.9-2.9); HEMATOCRIT 28.2 % (36.0-47.0); HEMOGLOBIN 9.6 g/dL (12.0-16.0); LYMPHOCYTES # (AUTO) 0.7 X10^3/uL (1.3-2.9); LYMPHOCYTES % (AUTO) 16.6 % (21.0-51.0); MEAN CORPUSCULAR HEMOGLOBIN 36.9 pg (27.0-34.0); MEAN CORPUSCULAR HGB CONC 34.1 g/dL (33.0-35.0); MEAN PLATELET VOLUME 7.4 fL (7.4-11.0); MONOCYTES # (AUTO) 0.5 x10^3/uL (0.3-0.8); MONOCYTES % (AUTO) 11.1 % (0.0-13.0); NEUTROPHILS % (AUTO) 67.8 % (42.0-75.0); PLATELET COUNT 117 X10^3/uL (150.0-450.0); RED BLOOD COUNT 2.61 X10^6/uL (3.5-5.4); RED CELL DISTRIBUTION WIDTH 17.7 % (11.6-16.5); WHITE BLOOD COUNT 4.4 X10^3/uL (3.6-10.0)
[2019-10-23 07:04] LABS: ALBUMIN 2.9 g/dL (3.4-5.0); CALCIUM 7.7 mg/dL (8.5-10.1); CARBON DIOXIDE 32.2 mmol/L (21-32); COR CA(FOR HYPOALB) 8.6 mg/dL (8.5-10.1); CREATININE 6.17 mg/dL (0.55-1.02); TOTAL PROTEIN 7.3 g/dL (6.4-8.2)
[2019-10-23 07:07] LABS: PLATELET MORPHOLOGY COMMENT NORMAL (NORMAL)
[2019-10-23] MEDS ORDERED: TOPROL XL PO ONE (11:29)
[2019-10-23] MEDS: TOPROL XL PO SCH (11:32)
[2019-10-23] MEDS: ASPIRIN EC 81 MG PO SCH (11:32)
[2019-10-23] MEDS: SYNTHROID 112 mcg TAB PO SCH (11:32)
[2019-10-23] MEDS: NORVASC TAB 5 MG PO SCH ×2 (11:32→21:30)
[2019-10-23] MEDS: RENAGEL PO SCH (11:32)
[2019-10-23] MEDS: ROBITUSSIN DM PO SCH ×4 (11:32→21:31)
[2019-10-23] MEDS: LIPITOR TAB 40 MG PO SCH (11:32)
[2019-10-23] MEDS: COLACE CAP 100 MG PO SCH ×2 (11:33→21:30)
[2019-10-23] MEDS: VSL#3 PO SCH (11:33)
[2019-10-23] MEDS: NS 1/2 1000 ML IV 1,000 ML IV SCH ×2 (13:23→13:24)
[2019-10-23] MEDS: XANAX PO PRN (21:31)
[2019-10-24] MEDS: DUONEB 0.5 MG/3 MG (3 mL) NEB SCH ×6 (00:46→20:54)
[2019-10-24 05:27] LABS: BASOPHILS # (AUTO) 0.1 X10^3/uL (0.0-0.1); BASOPHILS % (AUTO) 1.4 % (0.2-1.0); EOSINOPHILS # (AUTO) 0.2 x10^3/uL (0.0-0.2); EOSINOPHILS % (AUTO) 3.9 % (0.9-2.9); HEMATOCRIT 27.3 % (36.0-47.0); HEMOGLOBIN 9.3 g/dL (12.0-16.0); LYMPHOCYTES # (AUTO) 0.7 X10^3/uL (1.3-2.9); LYMPHOCYTES % (AUTO) 15.9 % (21.0-51.0); MEAN CORPUSCULAR HEMOGLOBIN 36.9 pg (27.0-34.0); MEAN CORPUSCULAR VOLUME 108.7 fL (80.0-100.0); MEAN PLATELET VOLUME 7.4 fL (7.4-11.0); MONOCYTES # (AUTO) 0.5 x10^3/uL (0.3-0.8); NEUTROPHILS # (AUTO) 2.9 x10^3/uL (2.2-4.8); NEUTROPHILS % (AUTO) 67.8 % (42.0-75.0); PLATELET COUNT 115 X10^3/uL (150.0-450.0); RED BLOOD COUNT 2.51 X10^6/uL (3.5-5.4); WHITE BLOOD COUNT 4.3 X10^3/uL (3.6-10.0)
[2019-10-24 05:30] LABS: ALBUMIN 2.9 g/dL (3.4-5.0); CALCIUM 7.3 mg/dL (8.5-10.1); CARBON DIOXIDE 35.3 mmol/L (21-32); COR CA(FOR HYPOALB) 8.2 mg/dL (8.5-10.1); CREATININE 4.53 mg/dL (0.55-1.02); TOTAL PROTEIN 7.3 g/dL (6.4-8.2)
[2019-10-24] MEDS: BENTYL CAP 10 MG PO SCH ×3 (05:44→21:00)
[2019-10-24] MEDS: CATAPRES TAB 0.2 MG PO SCH ×3 (05:44→21:00)
[2019-10-24] MEDS: CARAFATE PO SCH ×3 (05:44→21:00)
[2019-10-24] MEDS: NS 1/2 1000 ML IV 1,000 ML IV SCH ×2 (05:44→16:53)
[2019-10-24] MEDS: ZOSYN VIAL 2.25 GRAMS 2.25 G in NS 100 ML IV + SPIKE MINIBAG* 100 ML IV SCH ×3 (05:45→21:00)
[2019-10-24 05:59] LABS: ANISOCYTOSIS SLIGHT; PLATELET MORPHOLOGY COMMENT NORMAL (NORMAL)
[2019-10-24] MEDS ORDERED: TOPROL XL PO ONE (08:39)
[2019-10-24] MEDS: ROBITUSSIN DM PO SCH ×4 (09:12→20:35)
[2019-10-24] MEDS: SYNTHROID 112 mcg TAB PO SCH (09:12)
[2019-10-24] MEDS: LEVAQUIN PREMIX IV 500 MG 500 MG/100 ML BAG IV SCH (09:12)
[2019-10-24] MEDS: ASPIRIN EC 81 MG PO SCH (09:13)
[2019-10-24] MEDS: COLACE CAP 100 MG PO SCH ×2 (09:13→20:38)
[2019-10-24] MEDS: NORVASC TAB 5 MG PO SCH ×2 (09:13→20:38)
[2019-10-24] MEDS: TOPROL XL PO SCH (09:14)
[2019-10-24] MEDS: RENAGEL PO SCH (09:14)
[2019-10-24] MEDS: LIPITOR TAB 40 MG PO SCH (09:16)
[2019-10-24] MEDS: VSL#3 PO SCH (09:17)
--- NOTE | 2019-10-24 12:25 | PCM.PROG ---
Progress Note Progress Note for Day of Date of Exam: 10/24/19 Subjective Subjective: WAS ADMITTED FOR TREATMENT OF PNEUMONIA. THIS MORNING SHE IS LYING IN BED RESTING COMFORTABLY. Past Medical Family Social History Past Med/Fam/Surg Hx: No changes since H&P Allergies: Allergies No Known Drug Allergies Allergy (Verified 10/13/17 14:56) Review of Systems ROS: No change since H&P Vital Signs and I&O's Vital Signs: Temperature 98.2 F Pulse Rate [Right Brachial] 63 Pulse Rate 97 Respiratory Rate 18 Blood Pressure [Right Arm] 148/67 Blood Pressure [Left Arm] 153/84 Blood Pressure 197/96 O2 Sat by Pulse Oximetry 98 Intake and Output: Intake & Output 10/21/19 10/22/19 10/23/19 10/24/19 23:59 23:59 23:59 23:59 Intake Total 520 / 520 385 / 385 480 / 480 110 / 110 Output Total 0 / 0 Balance 520 / 520 385 / 385 480 / 480 110 / 110 Physical Exam Oriented: Normal Eyes: Normal Ear: Normal Nose: Normal Throat: Normal Respiratory: Generalized, Wheezes and Rhonchi Cardiovascular: Normal; negative S3, S4 and Murmur : Normal Auscultation: Bowel Sounds: Normal Tenderness: Normal Skin: Normal Musculoskeletal: Normal Psychiatric: Normal Mood Description: Calm Affect: Normal Speech Pattern: Clear and Appropriate Laboratory and Diagnostics Result Diagrams: 10/24/19 04:42 10/24/19 04:42 Labs: 10/20/19 14:27 Blood Blood Culture - Preliminary 10/20/19 14:10 Blood Blood Culture - Preliminary 10/20/19 15:51 Sputum - Expectorated Sputum Sputum Culture - Final 10/20/19 15:51 Sputum - Expectorated Sputum - Final Laboratory WBC 4.3 X10^3/uL (3.6-10.0) 10/24/19 04:42 RBC 2.51 X10^6/uL (3.5-5.4) L 10/24/19 04:42 Hgb 9.3 g/dL (12.0-16.0) L 10/24/19 04:42 Hct 27.3 % (36.0-47.0) L 10/24/19 04:42 MCV 108.7 fL (80.0-100.0) H 10/24/19 04:42 MCH 36.9 pg (27.0-34.0) H 10/24/19 04:42 MCHC 34.0 g/dL (33.0-35.0) 10/24/19 04:42 RDW 18.0 % (11.6-16.5) H 10/24/19 04:42 Plt Count 115 X10^3/uL (150.0-450.0) L 10/24/19 04:42 Plt Count Comment Decreased (ADEQUATE) A 10/24/19 04:42 MPV 7.4 fL (7.4-11.0) 10/24/19 04:42 Neut % (Auto) 67.8 % (42.0-75.0) 10/24/19 04:42 Lymph % (Auto) 15.9 % (21.0-51.0) L 10/24/19 04:42 [place] % (Auto) 11.0 % (0.0-13.0) 10/24/19 04:42 Eos % (Auto) 3.9 % (0.9-2.9) H 10/24/19 04:42 Baso % (Auto) 1.4 % (0.2-1.0) H 10/24/19 04:42 Neut # (Auto) 2.9 x10^3/uL (2.2-4.8) 10/24/19 04:42 Lymph # (Auto) 0.7 X10^3/uL (1.3-2.9) L 10/24/19 04:42 [place] # (Auto) 0.5 x10^3/uL (0.3-0.8) 10/24/19 04:42 Eos # (Auto) 0.2 x10^3/uL (0.0-0.2) 10/24/19 04:42 Baso # (Auto) 0.1 X10^3/uL (0.0-0.1) 10/24/19 04:42 Absolute Nucleated RBC 0.4 /100WBC 10/24/19 04:42 Plt Morphology Comment Normal (NORMAL) 10/24/19 04:42 RBC Morphology Abnormal (NORMAL) A 10/24/19 04:42 Anisocytosis Slight A 10/24/19 04:42 Macrocytosis 1+ A 10/24/19 04:42 Sodium 139 mmol/L (136-145) 10/24/19 04:42 Corrected Sodium 141 mmol/L (136-145) 10/24/19 04:42 Potassium 4.0 mmol/L (3.5-5.1) 10/24/19 04:42 Chloride 100 mmol/L (98-107) 10/24/19 04:42 Carbon Dioxide 35.3 mmol/L (21-32) H 10/24/19 04:42 BUN 17 mg/dL (7-18) 10/24/19 04:42 Creatinine 4.53 mg/dL (0.55-1.02) H 10/24/19 04:42 Est GFR (MDRD) Af Amer 13 (>60) L 10/24/19 04:42 Est GFR (MDRD) Non-Af 11 (>60) L 10/24/19 04:42 Glucose 164 mg/dL (65-99) H 10/24/19 04:42 POC Glucose (mg/dL) 146 mg/dL (65-99) H 10/21/19 16:52 Calcium 7.3 mg/dL (8.5-10.1) L 10/24/19 04:42 Corrected Calcium 8.2 mg/dL (8.5-10.1) L 10/24/19 04:42 Total Bilirubin 0.70 mg/dL (0.2-1.0) 10/24/19 04:42 AST 14 Units/L (15-37) L 10/24/19 04:42 ALT 11 Units/L (12-78) L 10/24/19 04:42 Alkaline Phosphatase 99 Units/L (46-116) 10/24/19 04:42 Total Protein 7.3 g/dL (6.4-8.2) 10/24/19 04:42 Albumin 2.9 g/dL (3.4-5.0) L 10/24/19 04:42 Globulin 4.4 g/dL (2.5-4.5) 10/24/19 04:42 Albumin/Globulin Ratio 0.7 Ratio (1.1-2.1) L 10/24/19 04:42 Plan (1) Pneumonia: Status: Acute Qualifiers: Pneumonia type: due to unspecified organism Laterality: unspecified laterality Lung location: unspecified part of lung Qualified Code(s): J18.9 - Pneumonia, unspecified organism Plan: IMPROVING, CONTINUE IV ZOSYN, IV LEVAQUIN, RESPIRATORY TX, SUPPLEMENTAL OXYGEN, WILL CONTINUE TO MONITOR
[2019-10-24] MEDS: XANAX PO PRN (22:04)
[2019-10-25] MEDS: DUONEB 0.5 MG/3 MG (3 mL) NEB SCH ×6 (00:50→20:06)
[2019-10-25] MEDS: NS 1/2 1000 ML IV 1,000 ML IV SCH ×2 (05:19→20:55)
[2019-10-25] MEDS: CATAPRES TAB 0.2 MG PO SCH ×3 (05:45→21:00)
[2019-10-25] MEDS: BENTYL CAP 10 MG PO SCH ×3 (05:45→21:00)
[2019-10-25] MEDS: CARAFATE PO SCH ×3 (05:45→21:01)
[2019-10-25] MEDS: ZOSYN VIAL 2.25 GRAMS 2.25 G in NS 100 ML IV + SPIKE MINIBAG* 100 ML IV SCH ×3 (05:45→21:01)
[2019-10-25 06:05] LABS: BASOPHILS # (AUTO) 0.1 X10^3/uL (0.0-0.1); BASOPHILS % (AUTO) 1.1 % (0.2-1.0); EOSINOPHILS # (AUTO) 0.2 x10^3/uL (0.0-0.2); EOSINOPHILS % (AUTO) 3.3 % (0.9-2.9); HEMATOCRIT 27.7 % (36.0-47.0); HEMOGLOBIN 9.5 g/dL (12.0-16.0); LYMPHOCYTES # (AUTO) 0.7 X10^3/uL (1.3-2.9); LYMPHOCYTES % (AUTO) 14.1 % (21.0-51.0); MEAN CORPUSCULAR HEMOGLOBIN 37.6 pg (27.0-34.0); MEAN CORPUSCULAR HGB CONC 34.3 g/dL (33.0-35.0); MEAN CORPUSCULAR VOLUME 109.4 fL (80.0-100.0); MEAN PLATELET VOLUME 8.1 fL (7.4-11.0); MONOCYTES # (AUTO) 0.5 x10^3/uL (0.3-0.8); MONOCYTES % (AUTO) 10.6 % (0.0-13.0); NEUTROPHILS # (AUTO) 3.4 x10^3/uL (2.2-4.8); NEUTROPHILS % (AUTO) 70.9 % (42.0-75.0); PLATELET COUNT 105 X10^3/uL (150.0-450.0); RED BLOOD COUNT 2.53 X10^6/uL (3.5-5.4); RED CELL DISTRIBUTION WIDTH 18.2 % (11.6-16.5); WHITE BLOOD COUNT 4.8 X10^3/uL (3.6-10.0)
[2019-10-25 06:19] LABS: PLATELET MORPHOLOGY COMMENT NORMAL (NORMAL)
[2019-10-25 06:20] LABS: ANISOCYTOSIS SLIGHT
[2019-10-25 06:23] LABS: ALBUMIN 2.9 g/dL (3.4-5.0); CALCIUM 7.3 mg/dL (8.5-10.1); CARBON DIOXIDE 32.1 mmol/L (21-32); COR CA(FOR HYPOALB) 8.2 mg/dL (8.5-10.1); CREATININE 6.12 mg/dL (0.55-1.02); TOTAL PROTEIN 7.2 g/dL (6.4-8.2)
[2019-10-25] MEDS ORDERED: TOPROL XL PO ONE (09:32)
[2019-10-25] MEDS: RENAGEL PO SCH (09:45)
[2019-10-25] MEDS: TOPROL XL PO SCH (09:45)
[2019-10-25] MEDS: LIPITOR TAB 40 MG PO SCH (09:45)
[2019-10-25] MEDS: VSL#3 PO SCH (09:45)
[2019-10-25] MEDS: SYNTHROID 112 mcg TAB PO SCH (09:45)
[2019-10-25] MEDS: ROBITUSSIN DM PO SCH ×4 (09:46→21:00)
[2019-10-25] MEDS: NORVASC TAB 5 MG PO SCH ×2 (09:46→21:00)
[2019-10-25] MEDS: ASPIRIN EC 81 MG PO SCH (09:48)
[2019-10-25] MEDS: COLACE CAP 100 MG PO SCH ×2 (09:48→21:00)
--- NOTE | 2019-10-25 13:46 | PCM.PROG ---
Progress Note Progress Note for Day of Date of Exam: 10/25/19 Subjective Subjective: Pt sitting up in bed. She reports she is having some non-productive cough that is not new. No acute concerns overnight. Past Medical Family Social History Past Med/Fam/Surg Hx: No changes since H&P Allergies: Allergies No Known Drug Allergies Allergy (Verified 10/13/17 14:56) Review of Systems ROS: No change since H&P Vital Signs and I&O's Vital Signs: Temperature 98.1 F Pulse Rate [Right Brachial] 66 Pulse Rate 64 Respiratory Rate 18 Blood Pressure [Right Arm] 138/65 Blood Pressure [Left Arm] 153/84 Blood Pressure 197/96 O2 Sat by Pulse Oximetry 91 Intake and Output: Intake & Output 10/22/19 10/23/19 10/24/19 10/25/19 23:59 23:59 23:59 23:59 Intake Total 385 / 385 480 / 480 1230 / 1230 0 / 0 Balance 385 / 385 480 / 480 1230 / 1230 0 / 0 Physical Exam Oriented: Normal Eyes: Normal Ear: Normal Nose: Normal Throat: Normal Respiratory: Generalized, Wheezes and Rhonchi Cardiovascular: Normal; negative S3, S4 and Murmur : Normal Auscultation: Bowel Sounds: Normal Tenderness: Normal Skin: Normal Musculoskeletal: Normal Psychiatric: Normal Mood Description: Calm Affect: Normal Speech Pattern: Clear and Appropriate Laboratory and Diagnostics Result Diagrams: 10/25/19 05:13 10/25/19 05:13 Labs: 10/20/19 14:27 Blood Blood Culture - Preliminary 10/20/19 14:10 Blood Blood Culture - Preliminary 10/20/19 15:51 Sputum - Expectorated Sputum Sputum Culture - Final 10/20/19 15:51 Sputum - Expectorated Sputum - Final Laboratory WBC 4.8 X10^3/uL (3.6-10.0) 10/25/19 05:13 RBC 2.53 X10^6/uL (3.5-5.4) L 10/25/19 05:13 Hgb 9.5 g/dL (12.0-16.0) L 10/25/19 05:13 Hct 27.7 % (36.0-47.0) L 10/25/19 05:13 MCV 109.4 fL (80.0-100.0) H 10/25/19 05:13 MCH 37.6 pg (27.0-34.0) H 10/25/19 05:13 MCHC 34.3 g/dL (33.0-35.0) 10/25/19 05:13 RDW 18.2 % (11.6-16.5) H 10/25/19 05:13 Plt Count 105 X10^3/uL (150.0-450.0) L 10/25/19 05:13 Plt Count Comment Decreased (ADEQUATE) A 10/25/19 05:13 MPV 8.1 fL (7.4-11.0) 10/25/19 05:13 Neut % (Auto) 70.9 % (42.0-75.0) 10/25/19 05:13 Lymph % (Auto) 14.1 % (21.0-51.0) L 10/25/19 05:13 [place] % (Auto) 10.6 % (0.0-13.0) 10/25/19 05:13 Eos % (Auto) 3.3 % (0.9-2.9) H 10/25/19 05:13 Baso % (Auto) 1.1 % (0.2-1.0) H 10/25/19 05:13 Neut # (Auto) 3.4 x10^3/uL (2.2-4.8) 10/25/19 05:13 Lymph # (Auto) 0.7 X10^3/uL (1.3-2.9) L 10/25/19 05:13 [place] # (Auto) 0.5 x10^3/uL (0.3-0.8) 10/25/19 05:13 Eos # (Auto) 0.2 x10^3/uL (0.0-0.2) 10/25/19 05:13 Baso # (Auto) 0.1 X10^3/uL (0.0-0.1) 10/25/19 05:13 Absolute Nucleated RBC 0.2 /100WBC 10/25/19 05:13 Plt Morphology Comment Normal (NORMAL) 10/25/19 05:13 RBC Morphology Abnormal (NORMAL) A 10/25/19 05:13 Anisocytosis Slight A 10/25/19 05:13 Macrocytosis 1+ A 10/25/19 05:13 Sodium 139 mmol/L (136-145) 10/25/19 05:13 Corrected Sodium 140 mmol/L (136-145) 10/25/19 05:13 Potassium 4.0 mmol/L (3.5-5.1) 10/25/19 05:13 Chloride 99 mmol/L (98-107) 10/25/19 05:13 Carbon Dioxide 32.1 mmol/L (21-32) H 10/25/19 05:13 BUN 30 mg/dL (7-18) H 10/25/19 05:13 Creatinine 6.12 mg/dL (0.55-1.02) H 10/25/19 05:13 Est GFR (MDRD) Af Amer 9 (>60) L 10/25/19 05:13 Est GFR (MDRD) Non-Af 7 (>60) L 10/25/19 05:13 Glucose 162 mg/dL (65-99) H 10/25/19 05:13 POC Glucose (mg/dL) 146 mg/dL (65-99) H 10/21/19 16:52 Calcium 7.3 mg/dL (8.5-10.1) L 10/25/19 05:13 Corrected Calcium 8.2 mg/dL (8.5-10.1) L 10/25/19 05:13 Total Bilirubin 0.80 mg/dL (0.2-1.0) 10/25/19 05:13 AST 14 Units/L (15-37) L 10/25/19 05:13 ALT 9 Units/L (12-78) L 10/25/19 05:13 Alkaline Phosphatase 104 Units/L (46-116) 10/25/19 05:13 Total Protein 7.2 g/dL (6.4-8.2) 10/25/19 05:13 Albumin 2.9 g/dL (3.4-5.0) L 10/25/19 05:13 Globulin 4.3 g/dL (2.5-4.5) 10/25/19 05:13 Albumin/Globulin Ratio 0.7 Ratio (1.1-2.1) L 10/25/19 05:13 Plan (1) Pneumonia: Status: Acute Qualifiers: Pneumonia type: due to unspecified organism Laterality: unspecified laterality Lung location: unspecified part of lung Qualified Code(s): J18.9 - Pneumonia, unspecified organism Plan: IMPROVING, CONTINUE IV ZOSYN, IV LEVAQUIN, RESPIRATORY TX, SUPPLEMENTAL OXYGEN, WILL CONTINUE TO MONITOR
[2019-10-25] MEDS: XANAX PO PRN (23:15)
[2019-10-26] MEDS: DUONEB 0.5 MG/3 MG (3 mL) NEB SCH ×6 (01:16→20:18)
[2019-10-26] MEDS: ZOSYN VIAL 2.25 GRAMS 2.25 G in NS 100 ML IV + SPIKE MINIBAG* 100 ML IV SCH ×3 (05:23→21:37)
[2019-10-26] MEDS: BENTYL CAP 10 MG PO SCH ×3 (05:23→21:39)
[2019-10-26] MEDS: CARAFATE PO SCH ×3 (05:23→21:40)
[2019-10-26] MEDS: CATAPRES TAB 0.2 MG PO SCH ×3 (05:25→21:40)
[2019-10-26 05:30] LABS: CALCIUM 7.6 mg/dL (8.5-10.1); CARBON DIOXIDE 31.6 mmol/L (21-32); CREATININE 7.16 mg/dL (0.55-1.02)
[2019-10-26 05:33] LABS: BASOPHILS # (AUTO) 0.1 X10^3/uL (0.0-0.1); BASOPHILS % (AUTO) 1.9 % (0.2-1.0); EOSINOPHILS # (AUTO) 0.2 x10^3/uL (0.0-0.2); HEMATOCRIT 26.8 % (36.0-47.0); HEMOGLOBIN 9.1 g/dL (12.0-16.0); LYMPHOCYTES # (AUTO) 0.8 X10^3/uL (1.3-2.9); LYMPHOCYTES % (AUTO) 15.8 % (21.0-51.0); MEAN CORPUSCULAR HEMOGLOBIN 37.3 pg (27.0-34.0); MEAN CORPUSCULAR HGB CONC 34.1 g/dL (33.0-35.0); MEAN CORPUSCULAR VOLUME 109.4 fL (80.0-100.0); MEAN PLATELET VOLUME 7.6 fL (7.4-11.0); MONOCYTES # (AUTO) 0.6 x10^3/uL (0.3-0.8); MONOCYTES % (AUTO) 11.2 % (0.0-13.0); NEUTROPHILS # (AUTO) 3.4 x10^3/uL (2.2-4.8); NEUTROPHILS % (AUTO) 67.1 % (42.0-75.0); PLATELET COUNT 102 X10^3/uL (150.0-450.0); RED BLOOD COUNT 2.45 X10^6/uL (3.5-5.4); RED CELL DISTRIBUTION WIDTH 17.6 % (11.6-16.5)
[2019-10-26 06:06] LABS: BAND NEUTROPHILS % 2 % (0-10); PLATELET MORPHOLOGY COMMENT NORMAL (NORMAL)
[2019-10-26 06:07] LABS: ANISOCYTOSIS SLIGHT
[2019-10-26] MEDS ORDERED: TOPROL XL PO ONE (09:09)
[2019-10-26] MEDS: LEVAQUIN PREMIX IV 500 MG 500 MG/100 ML BAG IV SCH (11:22)
[2019-10-26] MEDS: COLACE CAP 100 MG PO SCH ×2 (11:23→21:40)
[2019-10-26] MEDS: VSL#3 PO SCH (11:23)
[2019-10-26] MEDS: ROBITUSSIN DM PO SCH ×4 (11:23→21:40)
[2019-10-26] MEDS: NORVASC TAB 5 MG PO SCH ×2 (11:24→21:40)
[2019-10-26] MEDS: ASPIRIN EC 81 MG PO SCH (11:24)
[2019-10-26] MEDS: RENAGEL PO SCH (11:24)
[2019-10-26] MEDS: TOPROL XL PO SCH (11:24)
[2019-10-26] MEDS: SYNTHROID 112 mcg TAB PO SCH (11:24)
[2019-10-26] MEDS: LIPITOR TAB 40 MG PO SCH (11:24)
--- NOTE | 2019-10-26 13:55 | RAD ---
History: Shortness of breathStudy: Portable AP chestComparison: October 23, 2019Findings: There is increased linear density in the right lower lobe. The heart is enlarged. There is graft in the region of the left axillary and basilic vein. The upper lobes are grossly clear. There is no obvious effusion.Impression: Persistent cardiomegaly and increasing subsegmental atelectasis in the right lower lobeReported By:
[2019-10-26] MEDS: NS 1/2 1000 ML IV 1,000 ML IV SCH (18:34)
--- NOTE | 2019-10-26 21:15 | PCM.PROG ---
Progress Note - Progress Note for Day of Date of Exam: 10/23/19 - Subjective Subjective: WAS ADMITTED FOR TREATMENT OF PNEUMONIA. TODAY, SHE IS ALERT AND ORIENTED, LYING IN BED ON MORNING ROUNDS. SHE CONTINUES WITH COMPLAINTS OF COUGH AND SHORTNESS OF BREATH TODAY, ALTHOUGH SLIGHTLY IMPROVED. ON EXAMINATION, HEART IS REGULAR IN RATE AND RHYTHM. BILATERAL LUNGS ARE NOTED WITH SCATTERED WHEEZING AND RHONCHI THROUGHOUT. ABDOMEN IS ROUND, SOFT, AND NON- TENDER WITH NORMAL BOWEL SOUNDS NOTED IN ALL QUADRANTS. HER VITALS THIS MORNING ARE: 98.1-82-18-94%-147/65. LABS WERE OBTAINED. ABNORMAL LAB VALUES INCLUDE THE FOLLOWING: RBC 2.61, HGB 9.6, HCT 28.2, PLT COUNT 117, BUN 29, CREATININE 6.17, GLUCOSE 163, CALCIUM 7.7, CHLORIDE 96, CARBON DIOXIDE 32.2, ALT 11, ALBUMIN 2.9. A CHEST XRAY WAS OBTAINED TODAY AND REVEALED: Continued cardiomegaly without congestive heart failure. Hypo inflation with right basilar and right perihilar subsegmental atelectasis. SHE RECEIVED DIALYSIS THIS MORNING. SHE IS CURRENTLY RECEIVING IV ZOSYN, IV LEVAQUIN, IV FLUIDS, AND RESPIRATORY TX. WE WILL CONTINUE CURRENT PLAN OF CARE TODAY. OTHERWISE, WE WILL FOLLOW UP WITH AM LABS AND CONTINUE TO MONITOR. - Past Medical Family Social History Past Med/Fam/Surg Hx: No changes since H&P Allergies: Allergies No Known Drug Allergies Allergy (Verified 10/13/17 14:56) - Review of Systems ROS: No change since H&P - Vital Signs and I&O's Vital Signs: Temperature 98.0 F Pulse Rate [Right Brachial] 64 Pulse Rate 63 Respiratory Rate 18 Blood Pressure [Right Arm] 146/71 Blood Pressure [Left Arm] 153/84 Blood Pressure 197/96 O2 Sat by Pulse Oximetry 98 Intake and Output: Intake & Output 10/24/19 10/25/19 10/26/19 10/27/19 11:59 11:59 11:59 11:59 Intake Total 590 / 590 1120 / 1120 580 / 580 1240 / 1240 Balance 590 / 590 1120 / 1120 580 / 580 1240 / 1240 - Physical Exam Oriented: Normal Eyes: Normal Ear: Normal Nose: Normal Throat: Normal Respiratory: Generalized, Wheezes, Rhonchi Cardiovascular: Normal. negative: S3, S4, Murmur : Normal Auscultation: Bowel Sounds: Normal Tenderness: Normal Skin: Normal Musculoskeletal: Normal Psychiatric: Normal Mood Description: Calm Affect: Normal Speech Pattern: Clear, Appropriate - Laboratory and Diagnostics Result Diagrams: 10/26/19 04:55 10/26/19 04:55 Labs: 10/20/19 14:27 Blood Blood Culture - Final 10/20/19 14:10 Blood Blood Culture - Final 10/20/19 15:51 Sputum - Expectorated Sputum Sputum Culture - Final 10/20/19 15:51 Sputum - Expectorated Sputum - Final Laboratory WBC 5.0 X10^3/uL (3.6-10.0) 10/26/19 04:55 RBC 2.45 X10^6/uL (3.5-5.4) L 10/26/19 04:55 Hgb 9.1 g/dL (12.0-16.0) L 10/26/19 04:55 Hct 26.8 % (36.0-47.0) L 10/26/19 04:55 MCV 109.4 fL (80.0-100.0) H 10/26/19 04:55 MCH 37.3 pg (27.0-34.0) H 10/26/19 04:55 MCHC 34.1 g/dL (33.0-35.0) 10/26/19 04:55 RDW 17.6 % (11.6-16.5) H 10/26/19 04:55 Plt Count 102 X10^3/uL (150.0-450.0) L 10/26/19 04:55 Plt Count Comment Decreased (ADEQUATE) A 10/26/19 04:55 MPV 7.6 fL (7.4-11.0) 10/26/19 04:55 Neut % (Auto) 67.1 % (42.0-75.0) 10/26/19 04:55 Lymph % (Auto) 15.8 % (21.0-51.0) L 10/26/19 04:55 [place] % (Auto) 11.2 % (0.0-13.0) 10/26/19 04:55 Eos % (Auto) 4.0 % (0.9-2.9) H 10/26/19 04:55 Baso % (Auto) 1.9 % (0.2-1.0) H 10/26/19 04:55 Neut # (Auto) 3.4 x10^3/uL (2.2-4.8) 10/26/19 04:55 Lymph # (Auto) 0.8 X10^3/uL (1.3-2.9) L 10/26/19 04:55 [place] # (Auto) 0.6 x10^3/uL (0.3-0.8) 10/26/19 04:55 Eos # (Auto) 0.2 x10^3/uL (0.0-0.2) 10/26/19 04:55 Baso # (Auto) 0.1 X10^3/uL (0.0-0.1) 10/26/19 04:55 Absolute Nucleated RBC 0.1 /100WBC 10/26/19 04:55 Total Counted 100 10/26/19 04:55 Neutrophils % (Manual) 72 % (39-76) 10/26/19 04:55 Band Neutrophils % 2 % (0-10) 10/26/19 04:55 Lymphocytes % (Manual) 16 % (13-43) 10/26/19 04:55 Monocytes % (Manual) 7 % (4-9) 10/26/19 04:55 Eosinophils % (Manual) 3 % (0-6) 10/26/19 04:55 Plt Morphology Comment Normal (NORMAL) 10/26/19 04:55 RBC Morphology Abnormal (NORMAL) A 10/26/19 04:55 Anisocytosis Slight A 10/26/19 04:55 Macrocytosis 1+ A 10/26/19 04:55 Sodium 138 mmol/L (136-145) 10/26/19 04:55 Corrected Sodium 139 mmol/L (136-145) 10/26/19 04:55 Potassium 4.5 mmol/L (3.5-5.1) 10/26/19 04:55 Chloride 99 mmol/L (98-107) 10/26/19 04:55 Carbon Dioxide 31.6 mmol/L (21-32) 10/26/19 04:55 BUN 38 mg/dL (7-18) H 10/26/19 04:55 Creatinine 7.16 mg/dL (0.55-1.02) H 10/26/19 04:55 Est GFR (MDRD) Af Amer 8 (>60) L 10/26/19 04:55 Est GFR (MDRD) Non-Af 6 (>60) L 10/26/19 04:55 Glucose 160 mg/dL (65-99) H 10/26/19 04:55 POC Glucose (mg/dL) 146 mg/dL (65-99) H 10/21/19 16:52 Calcium 7.6 mg/dL (8.5-10.1) L 10/26/19 04:55 Corrected Calcium 8.2 mg/dL (8.5-10.1) L 10/25/19 05:13 Total Bilirubin 0.80 mg/dL (0.2-1.0) 10/25/19 05:13 AST 14 Units/L (15-37) L 10/25/19 05:13 ALT 9 Units/L (12-78) L 10/25/19 05:13 Alkaline Phosphatase 104 Units/L (46-116) 10/25/19 05:13 Total Protein 7.2 g/dL (6.4-8.2) 10/25/19 05:13 Albumin 2.9 g/dL (3.4-5.0) L 10/25/19 05:13 Globulin 4.3 g/dL (2.5-4.5) 10/25/19 05:13 Albumin/Globulin Ratio 0.7 Ratio (1.1-2.1) L 10/25/19 05:13 - Plan (1) Pneumonia Status: Acute Qualifiers: Pneumonia type: due to unspecified organism Laterality: unspecified laterality Lung location: unspecified part of lung Qualified Code(s): J18.9 - Pneumonia, unspecified organism Plan: IMPROVING, CONTINUE IV ZOSYN, IV LEVAQUIN, RESPIRATORY TX, SUPPLEMENTAL OX YGEN,. WILL CONTINUE TO MONITOR
--- NOTE | 2019-10-26 21:30 | PCM.PROG ---
Progress Note - Progress Note for Day of Date of Exam: 10/26/19 - Subjective Subjective: WAS ADMITTED FOR TREATMENT OF PNEUMONIA. TODAY, SHE IS ALERT AND ORIENTED, LYING IN BED ON MORNING ROUNDS. SHE CONTINUES WITH COMPLAINTS OF COUGH AND SHORTNESS OF BREATH TODAY, BUT CONTINUES TO REPORT SLIGHT IMPROVEMENT. ON EXAMINATION, HEART IS REGULAR IN RATE AND RHYTHM. BILATERAL LUNGS CONTINUE WITH SCATTERED WHEEZING AND RHONCHI THROUGHOUT. ABDOMEN IS ROUND, SOFT, AND NON-TENDER WITH NORMAL BOWEL SOUNDS NOTED IN ALL QUADRANTS. HER VITALS THIS MORNING ARE: 98.4-69-18-93%-151/67. LABS WERE OBTAINED. ABNORMAL LAB VALUES INCLUDE THE FOLLOWING: RBC 2.45, HGB 9.1, HCT 26.8, PLT COUNT 102, BUN 38, CREATININE 7.16, GLUCOSE 160, CALCIUM 7.6. A CHEST XRAY WAS OBTAINED TODAY AND REVEALED: cardiomegaly and increasing subsegmental atelectasis in the right lower lobe. SHE RECEIVED DIALYSIS THIS MORNING. SHE IS CURRENTLY RECEIVING IV ZOSYN, IV LEVAQUIN, IV FLUIDS, AND RESPIRATORY TX. WE WILL CONTINUE CURRENT PLAN OF CARE TODAY. OTHERWISE, WE WILL FOLLOW UP WITH AM LABS AND CONTINUE TO MONITOR. - Past Medical Family Social History Past Med/Fam/Surg Hx: No changes since H&P Allergies: Allergies No Known Drug Allergies Allergy (Verified 10/13/17 14:56) - Review of Systems ROS: No change since H&P - Vital Signs and I&O's Vital Signs: Temperature 98.0 F Pulse Rate [Right Brachial] 64 Pulse Rate 63 Respiratory Rate 18 Blood Pressure [Right Arm] 146/71 Blood Pressure [Left Arm] 153/84 Blood Pressure 197/96 O2 Sat by Pulse Oximetry 98 Intake and Output: Intake & Output 10/24/19 10/25/19 10/26/19 10/27/19 11:59 11:59 11:59 11:59 Intake Total 590 / 590 1120 / 1120 580 / 580 1240 / 1240 Balance 590 / 590 1120 / 1120 580 / 580 1240 / 1240 - Physical Exam Oriented: Normal Eyes: Normal Ear: Normal Nose: Normal Throat: Normal Respiratory: Generalized, Wheezes, Rhonchi Cardiovascular: Normal. negative: S3, S4, Murmur : Normal Auscultation: Bowel Sounds: Normal Tenderness: Normal Skin: Normal Musculoskeletal: Normal Psychiatric: Normal Mood Description: Calm Affect: Normal Speech Pattern: Clear, Appropriate - Laboratory and Diagnostics Result Diagrams: 10/26/19 04:55 10/26/19 04:55 Labs: 10/20/19 14:27 Blood Blood Culture - Final 10/20/19 14:10 Blood Blood Culture - Final 10/20/19 15:51 Sputum - Expectorated Sputum Sputum Culture - Final 10/20/19 15:51 Sputum - Expectorated Sputum - Final Laboratory WBC 5.0 X10^3/uL (3.6-10.0) 10/26/19 04:55 RBC 2.45 X10^6/uL (3.5-5.4) L 10/26/19 04:55 Hgb 9.1 g/dL (12.0-16.0) L 10/26/19 04:55 Hct 26.8 % (36.0-47.0) L 10/26/19 04:55 MCV 109.4 fL (80.0-100.0) H 10/26/19 04:55 MCH 37.3 pg (27.0-34.0) H 10/26/19 04:55 MCHC 34.1 g/dL (33.0-35.0) 10/26/19 04:55 RDW 17.6 % (11.6-16.5) H 10/26/19 04:55 Plt Count 102 X10^3/uL (150.0-450.0) L 10/26/19 04:55 Plt Count Comment Decreased (ADEQUATE) A 10/26/19 04:55 MPV 7.6 fL (7.4-11.0) 10/26/19 04:55 Neut % (Auto) 67.1 % (42.0-75.0) 10/26/19 04:55 Lymph % (Auto) 15.8 % (21.0-51.0) L 10/26/19 04:55 [place] % (Auto) 11.2 % (0.0-13.0) 10/26/19 04:55 Eos % (Auto) 4.0 % (0.9-2.9) H 10/26/19 04:55 Baso % (Auto) 1.9 % (0.2-1.0) H 10/26/19 04:55 Neut # (Auto) 3.4 x10^3/uL (2.2-4.8) 10/26/19 04:55 Lymph # (Auto) 0.8 X10^3/uL (1.3-2.9) L 10/26/19 04:55 [place] # (Auto) 0.6 x10^3/uL (0.3-0.8) 10/26/19 04:55 Eos # (Auto) 0.2 x10^3/uL (0.0-0.2) 10/26/19 04:55 Baso # (Auto) 0.1 X10^3/uL (0.0-0.1) 10/26/19 04:55 Absolute Nucleated RBC 0.1 /100WBC 10/26/19 04:55 Total Counted 100 10/26/19 04:55 Neutrophils % (Manual) 72 % (39-76) 10/26/19 04:55 Band Neutrophils % 2 % (0-10) 10/26/19 04:55 Lymphocytes % (Manual) 16 % (13-43) 10/26/19 04:55 Monocytes % (Manual) 7 % (4-9) 10/26/19 04:55 Eosinophils % (Manual) 3 % (0-6) 10/26/19 04:55 Plt Morphology Comment Normal (NORMAL) 10/26/19 04:55 RBC Morphology Abnormal (NORMAL) A 10/26/19 04:55 Anisocytosis Slight A 10/26/19 04:55 Macrocytosis 1+ A 10/26/19 04:55 Sodium 138 mmol/L (136-145) 10/26/19 04:55 Corrected Sodium 139 mmol/L (136-145) 10/26/19 04:55 Potassium 4.5 mmol/L (3.5-5.1) 10/26/19 04:55 Chloride 99 mmol/L (98-107) 10/26/19 04:55 Carbon Dioxide 31.6 mmol/L (21-32) 10/26/19 04:55 BUN 38 mg/dL (7-18) H 10/26/19 04:55 Creatinine 7.16 mg/dL (0.55-1.02) H 10/26/19 04:55 Est GFR (MDRD) Af Amer 8 (>60) L 10/26/19 04:55 Est GFR (MDRD) Non-Af 6 (>60) L 10/26/19 04:55 Glucose 160 mg/dL (65-99) H 10/26/19 04:55 POC Glucose (mg/dL) 146 mg/dL (65-99) H 10/21/19 16:52 Calcium 7.6 mg/dL (8.5-10.1) L 10/26/19 04:55 Corrected Calcium 8.2 mg/dL (8.5-10.1) L 10/25/19 05:13 Total Bilirubin 0.80 mg/dL (0.2-1.0) 10/25/19 05:13 AST 14 Units/L (15-37) L 10/25/19 05:13 ALT 9 Units/L (12-78) L 10/25/19 05:13 Alkaline Phosphatase 104 Units/L (46-116) 10/25/19 05:13 Total Protein 7.2 g/dL (6.4-8.2) 10/25/19 05:13 Albumin 2.9 g/dL (3.4-5.0) L 10/25/19 05:13 Globulin 4.3 g/dL (2.5-4.5) 10/25/19 05:13 Albumin/Globulin Ratio 0.7 Ratio (1.1-2.1) L 10/25/19 05:13 - Plan (1) Pneumonia Status: Acute Qualifiers: Pneumonia type: due to unspecified organism Laterality: unspecified laterality Lung location: unspecified part of lung Qualified Code(s): J18.9 - Pneumonia, unspecified organism Plan: IMPROVING, CONTINUE IV ZOSYN, IV LEVAQUIN, RESPIRATORY TX, SUPPLEMENTAL O XYGEN,. WILL CONTINUE TO MONITOR
[2019-10-26] MEDS: XANAX PO PRN (21:48)
[2019-10-27] MEDS: DUONEB 0.5 MG/3 MG (3 mL) NEB SCH ×3 (00:51→09:04)
[2019-10-27] MEDS: NS 1/2 1000 ML IV 1,000 ML IV SCH (02:58)
[2019-10-27] MEDS: CARAFATE PO SCH (05:38)
[2019-10-27] MEDS: CATAPRES TAB 0.2 MG PO SCH (05:38)
[2019-10-27] MEDS: ZOSYN VIAL 2.25 GRAMS 2.25 G in NS 100 ML IV + SPIKE MINIBAG* 100 ML IV SCH (05:38)
[2019-10-27] MEDS: BENTYL CAP 10 MG PO SCH (05:38)
--- NOTE | 2019-10-27 06:38 | RAD ---
HISTORY: Shortness of breathStudy: Chest AP portableComparison: 10/26/2019Findings:The heart remains enlarged. No congestive heart failure is noted. The lungs remain hypo inflated. The right lung base is somewhat better inflated than on the prior examination. Some residual density likely residual subsegmental atelectasis is present. Remainder of the lung quintero are clear. Bony thorax is unremarkable.IMPRESSION: Slight improvement aeration in the right lung base but with some residual density presentHypo inflationContinued cardiomegaly without congestive heart failureReported By:
[2019-10-27 06:59] LABS: BASOPHILS # (AUTO) 0.1 X10^3/uL (0.0-0.1); BASOPHILS % (AUTO) 1.1 % (0.2-1.0); EOSINOPHILS # (AUTO) 0.2 x10^3/uL (0.0-0.2); EOSINOPHILS % (AUTO) 3.4 % (0.9-2.9); HEMATOCRIT 30.6 % (36.0-47.0); HEMOGLOBIN 10.4 g/dL (12.0-16.0); LYMPHOCYTES # (AUTO) 0.8 X10^3/uL (1.3-2.9); LYMPHOCYTES % (AUTO) 15.5 % (21.0-51.0); MEAN CORPUSCULAR HEMOGLOBIN 36.6 pg (27.0-34.0); MEAN CORPUSCULAR HGB CONC 33.9 g/dL (33.0-35.0); MEAN PLATELET VOLUME 7.3 fL (7.4-11.0); MONOCYTES # (AUTO) 0.6 x10^3/uL (0.3-0.8); MONOCYTES % (AUTO) 11.6 % (0.0-13.0); NEUTROPHILS # (AUTO) 3.3 x10^3/uL (2.2-4.8); NEUTROPHILS % (AUTO) 68.4 % (42.0-75.0); PLATELET COUNT 107 X10^3/uL (150.0-450.0); RED BLOOD COUNT 2.84 X10^6/uL (3.5-5.4); RED CELL DISTRIBUTION WIDTH 18.1 % (11.6-16.5); WHITE BLOOD COUNT 4.9 X10^3/uL (3.6-10.0)
[2019-10-27 07:13] LABS: ALBUMIN 3.1 g/dL (3.4-5.0); CALCIUM 7.9 mg/dL (8.5-10.1); COR CA(FOR HYPOALB) 8.6 mg/dL (8.5-10.1); CREATININE 5.03 mg/dL (0.55-1.02); TOTAL PROTEIN 7.9 g/dL (6.4-8.2)
[2019-10-27 07:27] LABS: PLATELET MORPHOLOGY COMMENT NORMAL (NORMAL)
[2019-10-27] MEDS ORDERED: TOPROL XL PO ONE (08:41)
[2019-10-27] MEDS: VSL#3 PO SCH (09:46)
[2019-10-27] MEDS: ROBITUSSIN DM PO SCH (09:46)
[2019-10-27] MEDS: COLACE CAP 100 MG PO SCH (09:47)
[2019-10-27] MEDS: RENAGEL PO SCH (09:47)
[2019-10-27] MEDS: SYNTHROID 112 mcg TAB PO SCH (09:47)
[2019-10-27] MEDS: TOPROL XL PO SCH (09:47)
[2019-10-27] MEDS: NORVASC TAB 5 MG PO SCH (09:47)
[2019-10-27] MEDS: LIPITOR TAB 40 MG PO SCH (09:47)
[2019-10-27] MEDS: ASPIRIN EC 81 MG PO SCH (09:47)
[2019-10-27 11:16] VITALS: BP 134/63
== END 2019-10-27 10:50 | disposition home or self-care (01) | DRG 193 ==
LOC: MED/SURG 13:15
PROVIDERS: ADMIT Internal Medicine; ATTEND Internal Medicine
DX: I11.9 Hypertensive heart disease without heart failure; R06.02 Shortness of breath; N18.6 End stage renal disease; J18.9 Pneumonia, unspecified organism; I12.0 Hypertensive chronic kidney disease with stage 5 chronic kidney disease or end stage renal disease; E78.5 Hyperlipidemia, unspecified; E11.22 Type 2 diabetes mellitus with diabetic chronic kidney disease; Z79.899 Other long term (current) drug therapy; E03.8 Other specified hypothyroidism
CPT/HCPCS: 36415; 71010; 71020; 71045; 71046; 71260; 80048; 80053; 85025; 87040; 87070; 87205; 94640; 94760; A4222; J1956; J2543; J7050; J7620

== ENCOUNTER 2019-12-15 15:55 | Observation (INO) ==
[2019-12-15] MEDS ORDERED: TUSSIONEX PENNKINETIC SUSP PO PRN (17:01)
[2019-12-15] MEDS: XOPENEX 1.25 MG/3 ML NEBULE NEB SCH (17:15)
[2019-12-15] MEDS ORDERED: SALINE 0.9% 3 ML NEB TX NEB ONE (17:15)
[2019-12-15 17:48] LABS: EOSINOPHILS # (AUTO) 0.1 x10^3/uL (0.0-0.2); EOSINOPHILS % (AUTO) 1.6 % (0.9-2.9); HEMATOCRIT 32.9 % (36.0-47.0); LYMPHOCYTES # (AUTO) 0.6 X10^3/uL (1.3-2.9); MEAN CORPUSCULAR HEMOGLOBIN 35.2 pg (27.0-34.0); MEAN CORPUSCULAR HGB CONC 33.5 g/dL (33.0-35.0); MEAN PLATELET VOLUME 7.4 fL (7.4-11.0); MONOCYTES # (AUTO) 0.5 x10^3/uL (0.3-0.8); MONOCYTES % (AUTO) 10.9 % (0.0-13.0); NEUTROPHILS # (AUTO) 3.4 x10^3/uL (2.2-4.8); NEUTROPHILS % (AUTO) 73.5 % (42.0-75.0); PLATELET COUNT 180 X10^3/uL (150.0-450.0); RED BLOOD COUNT 3.13 X10^6/uL (3.5-5.4); RED CELL DISTRIBUTION WIDTH 16.2 % (11.6-16.5); WHITE BLOOD COUNT 4.6 X10^3/uL (3.6-10.0)
[2019-12-15 17:54] VITALS: BMI 24.0
[2019-12-15 17:56] LABS: ALANINE AMINOTRANSFERASE 19 Units/L (12-78); ALBUMIN 3.4 g/dL (3.4-5.0); ALKALINE PHOSPHATASE 150 Units/L (46-116); ASPARTATE AMINO TRANSFERASE 17 Units/L (15-37); BLOOD UREA NITROGEN 44 mg/dL (7-18); CALCIUM 8.3 mg/dL (8.5-10.1); CARBON DIOXIDE 33.4 mmol/L (21-32); CHLORIDE 98 mmol/L (98-107); COR NA(FOR HYPERGLY) 141 mmol/L (136-145); CREATININE 6.15 mg/dL (0.55-1.02); SODIUM 138 mmol/L (136-145); TOTAL PROTEIN 8.7 g/dL (6.4-8.2); eGFR NON BLACK RACES 7 (>60)
[2019-12-15] MEDS ORDERED: NS 1/2 1000 ML IV 1,000 ML IV ONE (18:30)
[2019-12-15] MEDS: VSL#3 PO SCH (18:34)
[2019-12-15] MEDS: ROBITUSSIN DM PO SCH ×2 (18:34→20:21)
[2019-12-15] MEDS: NS 1/2 1000 ML IV 1,000 ML IV SCH (18:35)
[2019-12-15] MEDS ORDERED: LEVAQUIN PREMIX IV 750 MG 750 MG/150 ML BAG IV ONE (19:30)
[2019-12-15] MEDS: FORTAZ or TAZICEF VIAL INJ 1 G in NS 100 ML IV + SPIKE MINIBAG* 100 ML IV SCH (20:37)
[2019-12-15] MEDS ORDERED: XANAX ONE (22:43)
[2019-12-15] MEDS: XANAX PO PRN (23:24)
[2019-12-16] MEDS: XOPENEX 1.25 MG/3 ML NEBULE NEB SCH ×4 (00:20→17:13)
[2019-12-16] MEDS ORDERED: ULTRAM PO PRN ×2 (03:19→06:23)
[2019-12-16] MEDS ORDERED: ULTRAM ONE (03:28)
[2019-12-16 05:25] LABS: BASOPHILS % (AUTO) 0.6 % (0.2-1.0); HEMATOCRIT 31.9 % (36.0-47.0); HEMOGLOBIN 10.8 g/dL (12.0-16.0); LYMPHOCYTES # (AUTO) 0.7 X10^3/uL (1.3-2.9); LYMPHOCYTES % (AUTO) 15.7 % (21.0-51.0); MEAN CORPUSCULAR HEMOGLOBIN 35.3 pg (27.0-34.0); MEAN CORPUSCULAR HGB CONC 33.7 g/dL (33.0-35.0); MEAN CORPUSCULAR VOLUME 104.9 fL (80.0-100.0); MEAN PLATELET VOLUME 7.5 fL (7.4-11.0); MONOCYTES # (AUTO) 0.6 x10^3/uL (0.3-0.8); MONOCYTES % (AUTO) 14.2 % (0.0-13.0); NEUTROPHILS # (AUTO) 3.1 x10^3/uL (2.2-4.8); NEUTROPHILS % (AUTO) 69.5 % (42.0-75.0); PLATELET COUNT 142 X10^3/uL (150.0-450.0); RED BLOOD COUNT 3.05 X10^6/uL (3.5-5.4); WHITE BLOOD COUNT 4.5 X10^3/uL (3.6-10.0)
[2019-12-16 05:42] LABS: ALBUMIN 2.9 g/dL (3.4-5.0); CALCIUM 8.1 mg/dL (8.5-10.1); CARBON DIOXIDE 29.1 mmol/L (21-32); CREATININE 6.47 mg/dL (0.55-1.02); TOTAL PROTEIN 7.9 g/dL (6.4-8.2)
--- NOTE | 2019-12-16 06:22 | RAD ---
HISTORYFollow-up pneumoniaSTUDYCHEST, 1 [id number]/10/2019FINDINGSThe heart is enlarged. Pulmonary venous congestion is present. Right lower lobe lung infiltrate is present as is a small right pleural effusion. The remainder of the lung quintero are clear.IMPRESSIONCardiomegaly with pulmonary venous congestionRight basilar lung infiltrateRight pleural effusionElectronically signed by: EDDIE LIMA (Dec 16, 2019 06:21:35)
--- NOTE | 2019-12-16 07:23 | RAD ---
HISTORYSOBSTUDYCHEST, 1 VIEWCOMPARISONPortable chest December 15, 2019FINDINGSThe trachea is midline. The cardiac silhouette is enlarged there is persistent vascular congestion infiltrate in the right lung base and effusion in the right lung base. When compared to yesterdays film there is no significant interval change. Old healed left lateral rib fractures are observed and a vascular stent/graft is seen in the left medial upper arm.. The bony thorax is unremarkable.IMPRESSIONNo change in the cardiomegaly vascular congestion right basilar infiltrate and effusion compared to yesterdays study.Electronically signed by: AZEEM MORGAN (Dec 16, 2019 07:22:31)
--- NOTE | 2019-12-16 10:45 | DR.H&P ---
H&P - History & Physical for Day of: H&P Date: 12/15/19 - Chief Complaint Chief Complaint: COUGH, SOB - History of Present Illness History of Present Illness: IS A 59 YEAR OLD PATIENT OF OURS. SHE WAS A DIRECT ADMISSION DUE TO COMPLAINTS OF A PERSISTENT COUGH AND SHORTNESS OF BREATH. SYMPTOMS STARTED APPROXIMATELY TWO DAYS PRIOR TO ARRIVAL AND HAVE PROGRESSIVELY GOTTEN WORSE. ON ARRIVAL TO THE HOSPITAL, VITALS WERE 97.7-72-19-90%-162/73. LABS WERE OBTAINED. ABNORMAL LAB VALUES INCLUDE THE FOLLOWING: RBC 3.13, HGB 11.0, HCT 32.9, CARBON DIOXIDE 33.4, BUN 44, CREATININE 6.15, GLUCOSE 212, CALCIUM 8.3, ALK PHOS 150, TOTAL PROTEIN 8.7, GLOBULIN 5.3. BLOOD AND SPUTUM CULTURES WERE OBTAINED. A CHEST XRAY WAS OBTAINED AND REVEALED: Cardiomegaly with pulmonary venous congestion. Right basilar lung infiltrate. Right pleural effusion. SHE WAS STARTED ON 1/2NS AT KVO, LEVAQUIN 500MG IV Q48H, FORTAZ 1G IV DAILY, AND RESPIRATORY TREATMENTS. SHE IS A DIALYSIS PATIENT AND IS SCHEDULE FOR DIALYSIS THIS MORNING. OTHERWISE, WE PLAN TO FOLLOW UP WITH AM LABS AND CONTINUE TO MONITOR. - Past Medical History Past Medical History: Hypertension, Diabetes, Renal Disease Additional Medical History: Nausea and Vomiting - Past Surgical History Surgical History: Cholecystectomy, Other Additional Surgical History: Right Nephrectomy, AV Fistula insertion - Family History Family Medical History: Cancer, [place], Hypertension - Social History Does patient currently use any type of tobacco product: No Have you used tobacco products in the last 12 months: No Type of Tobacco Use: None Does any household member use tobacco: No Alcohol Use: None Drug Use: None - Medications Home Medications: No Known Drug Allergies Allergy (Verified 10/13/17 14:56) - Review of Systems Constitutional: Fever, Weakness Eyes: No Symptoms Reported ENT: No Symptoms Reported Respiratory: Cough, Shortness of Breath, SOB with Excertion, Wheezing Cardiovascular: No Symptoms Reported Gastrointestinal: No Symptoms Reported Genitourinary: No Symptoms Reported Musculoskeletal: No Symptoms Reported Skin: No Symptoms Reported Neurological: Weakness - Physical Exam Vital Signs: Temperature 98.2 F Pulse Rate [Left Brachial] 66 Pulse Rate 72 Respiratory Rate 18 Blood Pressure [Left Arm] 145/61 Blood Pressure [Right Arm] 173/76 Blood Pressure 197/96 O2 Sat by Pulse Oximetry 97 Oriented: Normal Eyes: Normal Ear: Normal Nose: Normal Throat: Normal Respiratory: Diminished Throughout, Wheezes Throughout Cardiovascular: Normal : Normal Auscultation: Bowel Sounds: Normal Palpation: Normal Tenderness: Normal Skin: Normal Musculoskeletal: Normal Psychiatric: Normal Mood Description: Calm Affect: Normal Speech Pattern: Clear - Assessment/Plan (1) Bronchopneumonia Status: Acute Plan: ADMIT, IV LEVAQUIN, IV FORTAZ, RESPIRATORY TREATMENTS, SUPPLEMENTAL OXYGEN, CONTINUE TO MONITOR (2) Pleurisy with effusion Status: Acute (3) CKD (chronic kidney disease) stage V requiring chronic dialysis Status: Acute Plan: DIALYSIS ON SATURDAY, SATURDAY, SATURDAY - Allergies Allergies/Adverse Reactions: Allergies Allergy/AdvReac Type Severity Reaction Status Date / Time No Known Drug Allergies Allergy Verified 10/13/17 14:56
[2019-12-16] MEDS: NS 1/2 1000 ML IV 1,000 ML IV SCH ×2 (11:35→21:00)
[2019-12-16] MEDS: ROBITUSSIN DM PO SCH ×4 (11:36→20:59)
[2019-12-16] MEDS: VSL#3 PO SCH (11:36)
[2019-12-16] MEDS ORDERED: SEVELAMER CARBONATE 1600 MG PO SCH (12:00)
[2019-12-16] MEDS ORDERED: TOPROL XL PO ONE (12:54)
[2019-12-16] MEDS: ASPIRIN EC 81 MG PO SCH (12:58)
[2019-12-16] MEDS: SYNTHROID 112 mcg TAB PO SCH (12:58)
[2019-12-16] MEDS: NORVASC TAB 5 MG PO SCH ×2 (12:59→20:59)
[2019-12-16] MEDS: COLACE CAP 100 MG PO SCH ×2 (12:59→20:59)
[2019-12-16] MEDS: TOPROL XL PO SCH (12:59)
[2019-12-16] MEDS: CATAPRES TAB 0.2 MG PO SCH ×2 (12:59→21:00)
[2019-12-16] MEDS: BENTYL CAP 10 MG PO SCH ×2 (13:00→20:59)
[2019-12-16] MEDS: CARAFATE PO SCH ×2 (13:01→20:59)
[2019-12-16] MEDS: RENAGEL PO SCH (15:09)
[2019-12-16] MEDS: FORTAZ or TAZICEF VIAL INJ 1 G in NS 100 ML IV + SPIKE MINIBAG* 100 ML IV SCH (20:58)
[2019-12-16] MEDS ORDERED: LIPITOR TAB 40 MG PO SCH (21:00)
[2019-12-16] MEDS: XANAX PO PRN (22:31)
[2019-12-17] MEDS: XOPENEX 1.25 MG/3 ML NEBULE NEB SCH ×3 (00:52→11:57)
[2019-12-17 05:15] LABS: BASOPHILS % (AUTO) 0.8 % (0.2-1.0); EOSINOPHILS # (AUTO) 0.1 x10^3/uL (0.0-0.2); EOSINOPHILS % (AUTO) 1.5 % (0.9-2.9); HEMATOCRIT 32.7 % (36.0-47.0); HEMOGLOBIN 10.9 g/dL (12.0-16.0); LYMPHOCYTES # (AUTO) 0.9 X10^3/uL (1.3-2.9); LYMPHOCYTES % (AUTO) 18.8 % (21.0-51.0); MEAN CORPUSCULAR HEMOGLOBIN 35.2 pg (27.0-34.0); MEAN CORPUSCULAR HGB CONC 33.2 g/dL (33.0-35.0); MEAN PLATELET VOLUME 7.1 fL (7.4-11.0); MONOCYTES # (AUTO) 0.7 x10^3/uL (0.3-0.8); MONOCYTES % (AUTO) 14.8 % (0.0-13.0); NEUTROPHILS # (AUTO) 3.1 x10^3/uL (2.2-4.8); NEUTROPHILS % (AUTO) 64.1 % (42.0-75.0); PLATELET COUNT 160 X10^3/uL (150.0-450.0); RED BLOOD COUNT 3.09 X10^6/uL (3.5-5.4); RED CELL DISTRIBUTION WIDTH 16.3 % (11.6-16.5); WHITE BLOOD COUNT 4.8 X10^3/uL (3.6-10.0)
[2019-12-17 05:30] LABS: ALBUMIN 2.9 g/dL (3.4-5.0); CALCIUM 7.7 mg/dL (8.5-10.1); CARBON DIOXIDE 33.5 mmol/L (21-32); COR CA(FOR HYPOALB) 8.6 mg/dL (8.5-10.1); CREATININE 4.87 mg/dL (0.55-1.02); TOTAL PROTEIN 7.8 g/dL (6.4-8.2)
[2019-12-17] MEDS: CATAPRES TAB 0.2 MG PO SCH (05:32)
[2019-12-17] MEDS: BENTYL CAP 10 MG PO SCH (05:32)
[2019-12-17] MEDS: CARAFATE PO SCH (05:32)
[2019-12-17] MEDS: SYNTHROID 112 mcg TAB PO SCH ×2 (05:33→09:03)
[2019-12-17 06:22] LABS: PLATELET MORPHOLOGY COMMENT NORMAL (NORMAL)
--- NOTE | 2019-12-17 06:42 | RAD ---
HISTORYShortness of breathSTUDYCHEST, 1 [id number]/29/2020FINDINGSThe heart remains enlarged. Pulmonary venous congestion is present and unchanged. Right basilar lung infiltrate and pleural effusion are unchanged. The left lung is clear. Bony thorax is unremarkable with the exception of old healed left lateral rib fractures.IMPRESSIONContinued cardiomegaly without congestive heart failureNo change right basilar lung infiltrate and right pleural effusionElectronically signed by: EDDIE LIMA (Dec 17, 2019 06:41:45)
[2019-12-17] MEDS ORDERED: TOPROL XL PO ONE (09:06)
[2019-12-17] MEDS: ROBITUSSIN DM PO SCH (09:08)
[2019-12-17] MEDS: COLACE CAP 100 MG PO SCH (09:09)
[2019-12-17] MEDS: ASPIRIN EC 81 MG PO SCH (09:09)
[2019-12-17] MEDS: TOPROL XL PO SCH (09:09)
[2019-12-17] MEDS: RENAGEL PO SCH (09:09)
[2019-12-17] MEDS: NORVASC TAB 5 MG PO SCH (09:09)
[2019-12-17] MEDS: VSL#3 PO SCH (09:09)
[2019-12-17] MEDS ORDERED: LASIX IVP ONE (09:54)
[2019-12-17] MEDS ORDERED: ALBUMIN HUMAN 25%- 100 ML 100 ML IV SCH (10:00)
[2019-12-17 12:06] VITALS: BP 158/73
[2019-12-17] MEDS: NS 1/2 1000 ML IV 1,000 ML IV SCH (13:21)
[2019-12-17] MEDS ORDERED: LEVAQUIN PREMIX IV 500 MG 500 MG/100 ML BAG IV SCH (21:00)
== END 2019-12-17 13:35 | disposition home or self-care (01) ==
LOC: MED/SURG
PROVIDERS: ADMIT Internal Medicine; ATTEND Internal Medicine
DX: Z99.2 Dependence on renal dialysis; R73.09 Other abnormal glucose; R06.02 Shortness of breath; R94.4 Abnormal results of kidney function studies; J18.0 Bronchopneumonia, unspecified organism; J90 Pleural effusion, not elsewhere classified; N18.5 Chronic kidney disease, stage 5; R74.0 Nonspecific elevation of levels of transaminase and lactic acid dehydrogenase [LDH]
CPT/HCPCS: 36415; 71010; 71045; 80053; 85025; 87040; 87070; 87205; 94640; 94669; 94760; 96360; 96361; 96374; A4222; G0378; J0713; J1940; J1956; J7050; P9047